=== PATIENT | female | born 1945 | race Caucasian/White ===

== ENCOUNTER 2019-06-29 15:55 | Outpatient (CLI) | payer MEDICARE, SELFPAY ==
--- NOTE | 2019-06-29 16:05 | XR_ITS ---
WS: [id number] RIGHT KNEE: 3 VIEW(S) TECHNIQUE: AP, oblique(s) and lateral. HISTORY: KNEE PAIN RIGHT COMPARISON: 06/23/2018 No acute fracture. Stable sclerotic lesion in the distal RIGHT femur is probably an enchondroma. Cor tical thickening along the medial femoral cortex may be from old healed fracture. Severe narrowing medial compartment. Joint space narrowing with subchondral cystic changes and osteop hytes. Severe patellofemoral joint space arthritis. No soft tissue abnormality. XR/XR knee RT 3V* [id number] IMPRESSION: 1. Severe medial and patellofemoral joint space osteoarthritis. 2. Stable enchondroma and cortical thickening distal femur.
== END 2019-06-29 15:56 | disposition home or self-care (01) ==
LOC: RADOUTREAD 16:00 → WPI 16:04
PROVIDERS: Family Provider Family Medicine; PCP Family Medicine; Referring Provider Family Medicine; Visit Provider Family Medicine
DX: M17.11 Unilateral primary osteoarthritis, right knee (principal); D16.21 Benign neoplasm of long bones of right lower limb; M25.561 Pain in right knee
CPT/HCPCS: 73562

== ENCOUNTER → 2019-07-11 13:23 | Outpatient (BNVA) | payer MEDICARE, SELFPAY | PROVIDERS: Family Provider Family Medicine; PCP Family Medicine; Visit Provider Nurse Practitioner | DX: M54.5 Low back pain (principal); M54.2 Cervicalgia; M25.561 Pain in right knee; M19.90 Unspecified osteoarthritis, unspecified site; Z79.891 Long term (current) use of opiate analgesic | CPT/HCPCS: 99213; 99214 ==

== ENCOUNTER → 2019-07-25 09:11 | Outpatient (BNVA) | payer MEDICARE, SELFPAY | PROVIDERS: Family Provider Family Medicine; PCP Family Medicine; Referring Provider Family Medicine; Visit Provider Specialist | DX: R29.2 Abnormal reflex (principal); R26.81 Unsteadiness on feet; G47.10 Hypersomnia, unspecified; G62.9 Polyneuropathy, unspecified; G60.9 Hereditary and idiopathic neuropathy, unspecified; R61 Generalized hyperhidrosis; G47.19 Other hypersomnia | CPT/HCPCS: 99204; 99214 ==

== ENCOUNTER → 2019-07-26 12:09 | Outpatient (BNVA) | payer MEDICARE, SELFPAY | PROVIDERS: Family Provider Family Medicine; PCP Family Medicine; Visit Provider Specialist | DX: G62.9 Polyneuropathy, unspecified (principal); E11.40 Type 2 diabetes mellitus with diabetic neuropathy, unspecified | CPT/HCPCS: 95913 ==

== ENCOUNTER 2019-08-02 10:35 | Outpatient (RCR) | payer MEDICARE, SELFPAY | END 2019-08-19 23:59 | disposition home or self-care (01) | LOC: SPT 10:35 | PROVIDERS: Family Provider Family Medicine; PCP Family Medicine; Referring Provider Specialist; Visit Provider Specialist | DX: R26.81 Unsteadiness on feet (principal) | CPT/HCPCS: 97110; 97162 ==

== ENCOUNTER 2019-08-20 06:00 | Outpatient (RCR) | payer MEDICARE, SELFPAY | END 2019-09-19 23:59 | disposition home or self-care (01) | LOC: SPT 06:00 | PROVIDERS: Family Provider Family Medicine; PCP Family Medicine; Referring Provider Specialist; Visit Provider Specialist | DX: R26.81 Unsteadiness on feet (principal) | CPT/HCPCS: 97110 ==

== ENCOUNTER → 2019-09-07 09:40 | Outpatient (BNVA) | payer MEDICARE, SELFPAY | PROVIDERS: Family Provider Family Medicine; PCP Family Medicine; Visit Provider Anesthesiology | DX: M19.90 Unspecified osteoarthritis, unspecified site (principal); M25.561 Pain in right knee | CPT/HCPCS: 20610; 77003; J1030; J2001; J3490 ==

== ENCOUNTER → 2019-10-17 15:02 | Outpatient (BNVA) | payer MEDICARE, SELFPAY | PROVIDERS: Family Provider Family Medicine; PCP Family Medicine; Visit Provider Specialist | DX: G56.03 Carpal tunnel syndrome, bilateral upper limbs (principal); G60.9 Hereditary and idiopathic neuropathy, unspecified; E11.40 Type 2 diabetes mellitus with diabetic neuropathy, unspecified | CPT/HCPCS: 99214 ==

== ENCOUNTER → 2020-01-02 13:05 | Outpatient (BNVA) | payer MEDICARE, SELFPAY | PROVIDERS: Family Provider Family Medicine; PCP Family Medicine; Visit Provider Nurse Practitioner | DX: M54.9 Dorsalgia, unspecified (principal); M17.11 Unilateral primary osteoarthritis, right knee; M54.2 Cervicalgia; Z79.899 Other long term (current) drug therapy | CPT/HCPCS: 99214 ==

== ENCOUNTER → 2020-01-25 10:59 | Outpatient (BNVA) | payer MEDICARE, SELFPAY | PROVIDERS: Family Provider Family Medicine; PCP Family Medicine; Visit Provider Anesthesiology | DX: G89.29 Other chronic pain (principal); M17.11 Unilateral primary osteoarthritis, right knee | CPT/HCPCS: 20610; 77002; 77003; J1030; J3490 ==

== ENCOUNTER → 2020-03-19 13:07 | Outpatient (BNVA) | payer MEDICARE, SELFPAY | PROVIDERS: Family Provider Family Medicine; PCP Family Medicine; Visit Provider Nurse Practitioner | DX: G89.29 Other chronic pain (principal); M51.36 Other intervertebral disc degeneration, lumbar region; M25.561 Pain in right knee; M54.2 Cervicalgia; M54.9 Dorsalgia, unspecified; M19.90 Unspecified osteoarthritis, unspecified site; E11.40 Type 2 diabetes mellitus with diabetic neuropathy, unspecified; Z79.891 Long term (current) use of opiate analgesic | CPT/HCPCS: 99214 ==

== ENCOUNTER → 2020-04-18 09:16 | Outpatient (BNVA) | payer MEDICARE, SELFPAY | PROVIDERS: Family Provider Family Medicine; PCP Family Medicine; Visit Provider Anesthesiology | DX: G89.29 Other chronic pain (principal); M25.561 Pain in right knee; M19.90 Unspecified osteoarthritis, unspecified site | CPT/HCPCS: 20610; 77002 ==

== ENCOUNTER → 2020-05-21 13:13 | Outpatient (BNVA) | payer MEDICARE, SELFPAY | PROVIDERS: Family Provider Family Medicine; PCP Family Medicine; Visit Provider Anesthesiology | DX: G89.29 Other chronic pain (principal); M25.561 Pain in right knee; M51.36 Other intervertebral disc degeneration, lumbar region; M19.90 Unspecified osteoarthritis, unspecified site; E11.40 Type 2 diabetes mellitus with diabetic neuropathy, unspecified; M54.2 Cervicalgia; M54.9 Dorsalgia, unspecified; M41.9 Scoliosis, unspecified; Z79.891 Long term (current) use of opiate analgesic | CPT/HCPCS: 99214 ==

== ENCOUNTER → 2020-07-18 10:19 | Outpatient (BNVA) | payer MEDICARE, SELFPAY | PROVIDERS: Family Provider Family Medicine; PCP Family Medicine; Visit Provider Anesthesiology | DX: G89.29 Other chronic pain (principal); M51.36 Other intervertebral disc degeneration, lumbar region; M54.9 Dorsalgia, unspecified; M54.2 Cervicalgia; M19.90 Unspecified osteoarthritis, unspecified site; M25.561 Pain in right knee; E11.40 Type 2 diabetes mellitus with diabetic neuropathy, unspecified; Z79.899 Other long term (current) drug therapy; Z79.891 Long term (current) use of opiate analgesic | CPT/HCPCS: 62323; 99214; J1040; J3490 ==

== ENCOUNTER → 2020-07-24 08:09 | Outpatient (BNVA) | payer MEDICARE, SELFPAY | PROVIDERS: Family Provider Family Medicine; PCP Family Medicine; Visit Provider Specialist | DX: E11.42 Type 2 diabetes mellitus with diabetic polyneuropathy (principal); Z79.84 Long term (current) use of oral hypoglycemic drugs | CPT/HCPCS: 99213 ==

== ENCOUNTER 2020-08-14 13:17 | Outpatient (CLI) | payer MEDICARE, SELFPAY ==
--- NOTE | 2020-08-14 13:25 | CT_ITS ---
WS: [id number] CT CERVICAL SPINE HISTORY: M54.2 - Cervicalgia TECHNIQUE: Contiguous 2.5 mm axial imaging performed through the entire cervical spine. Sagittal and coronal reformats also performed. All CT scans at [facility] use at least one of these do se optimization techniques: automated exposure control; mA and/or kV adjustment per patient size (inc ludes targeted exams where dose is matched to clinical indication); or iterative reconstruction. DLP: 2044.89 mGycm COMPARISON: None available. Reversal of normal cervical lordosis centered at C5-6. Severe disc space narrowing at C4-5, C5-6 and C6-7. C2 anterolisthesis by 3.7 mm and C3 anterolisthesis by 3.4 mm. Hypertrophic soft tissue and osteophytes surrounding the odontoid process with severe narrowing of th e predental space. C2-C3: Severe RIGHT foraminal stenosis due to facet arthritis and osteophytes. C3-C4: Marked bilateral facet joint arthritis. Bilateral severe foraminal narrowing, RIGHT greater th an LEFT and a small central disc protrusion. C4-C5: Diffuse osteophytic ridging with encroachment upon the ventral thecal sac. Moderate to severe bilateral foraminal stenosis. C5-C6: Diffuse osteophytic ridging resulting in moderate central with severe bilateral foraminal sten osis. C6-C7: Diffuse osteophytic ridging and facet arthritis. Severe central and bilateral foraminal stenos is. C7-T1: Mild facet arthritis without significant stenosis. T1-2: Mild bilateral facet arthritis with mild foraminal stenosis. Atherosclerotic calcifications in the aortic arch. CT/CT cervical spin wo con* [id number] IMPRESSION: 1. Severe degenerative spondylitic changes throughout the cervical spine. 2. C2 anterolisthesis by 3.7 mm and C3 anterolisthesis by 3.4 mm. 3. Severe disc space narrowing and desiccation at C4-5, C5-6 and C6-7. 4. Multilevel areas of severe and moderate to severe central and foraminal karin noses as above.
== END 2020-08-14 13:18 | disposition home or self-care (01) ==
PROVIDERS: PCP Family Medicine; Visit Provider Anesthesiology
DX: M54.2 Cervicalgia (principal); G89.29 Other chronic pain; M48.02 Spinal stenosis, cervical region
CPT/HCPCS: 72125

== ENCOUNTER → 2020-09-19 13:26 | Outpatient (BNVA) | payer MEDICARE, SELFPAY | PROVIDERS: PCP Family Medicine; Visit Provider Nurse Practitioner | DX: G89.29 Other chronic pain (principal); M25.561 Pain in right knee; M54.2 Cervicalgia; M51.36 Other intervertebral disc degeneration, lumbar region; M19.90 Unspecified osteoarthritis, unspecified site; M41.9 Scoliosis, unspecified; E11.40 Type 2 diabetes mellitus with diabetic neuropathy, unspecified; G56.03 Carpal tunnel syndrome, bilateral upper limbs; Z79.891 Long term (current) use of opiate analgesic | CPT/HCPCS: 99213 ==

== ENCOUNTER → 2020-11-21 11:07 | Outpatient (BNVA) | payer MEDICARE, SELFPAY | PROVIDERS: PCP Family Medicine; Visit Provider Anesthesiology | DX: G89.29 Other chronic pain (principal); M51.36 Other intervertebral disc degeneration, lumbar region; M54.2 Cervicalgia; M54.9 Dorsalgia, unspecified; M19.90 Unspecified osteoarthritis, unspecified site; M25.561 Pain in right knee; Z79.891 Long term (current) use of opiate analgesic; Z79.899 Other long term (current) drug therapy | CPT/HCPCS: 99214 ==

== ENCOUNTER → 2020-12-12 10:08 | Outpatient (BNVA) | payer MEDICARE, SELFPAY | PROVIDERS: PCP Family Medicine; Visit Provider Anesthesiology | DX: G89.29 Other chronic pain (principal); M54.2 Cervicalgia; M54.9 Dorsalgia, unspecified; Z79.891 Long term (current) use of opiate analgesic | CPT/HCPCS: 62321; J1040 ==

== ENCOUNTER → 2021-01-21 13:07 | Outpatient (BNVA) | payer MEDICARE, SELFPAY | PROVIDERS: PCP Family Medicine; Visit Provider Anesthesiology | DX: G89.29 Other chronic pain (principal); M51.36 Other intervertebral disc degeneration, lumbar region; M54.2 Cervicalgia; M25.561 Pain in right knee; M19.90 Unspecified osteoarthritis, unspecified site; E11.40 Type 2 diabetes mellitus with diabetic neuropathy, unspecified; Z79.891 Long term (current) use of opiate analgesic | CPT/HCPCS: 99214 ==

== ENCOUNTER → 2021-03-21 09:57 | Outpatient (BNVA) | payer MEDICARE, SELFPAY | PROVIDERS: PCP Family Medicine; Visit Provider Anesthesiology | DX: G89.29 Other chronic pain (principal); M51.36 Other intervertebral disc degeneration, lumbar region; M54.2 Cervicalgia; M25.561 Pain in right knee; G60.9 Hereditary and idiopathic neuropathy, unspecified; M19.90 Unspecified osteoarthritis, unspecified site; Z79.899 Other long term (current) drug therapy; Z79.891 Long term (current) use of opiate analgesic | CPT/HCPCS: 99214 ==

== ENCOUNTER → 2021-03-25 10:09 | Outpatient (BNVA) | payer MEDICARE, SELFPAY | PROVIDERS: PCP Family Medicine; Visit Provider Internal Medicine | DX: L40.9 Psoriasis, unspecified (principal); Z79.899 Other long term (current) drug therapy; Z11.59 Encounter for screening for other viral diseases; Z11.1 Encounter for screening for respiratory tuberculosis; M54.2 Cervicalgia; M54.9 Dorsalgia, unspecified; G89.29 Other chronic pain | CPT/HCPCS: 99203; 99204 ==

== ENCOUNTER 2021-03-25 15:48 | Outpatient (CLI) | payer MEDICARE, SELFPAY ==
--- NOTE | 2021-03-25 15:53 | XR_ITS ---
WS: [id number] Left foot, 2 views, 03/25/2021 Clinical Data: M25.50 - Pain in unspecified joint Comparison: None. Findings: No new fractures or dislocations are seen. There is an old fracture of mid shaft of the left third me tacarpal. No bone destruction or erosion is noted. The joint spaces and soft tissues are normal. There is osteoarthritic change at the bases of the metacarpals at the articulation with the cuneiform s and cuboid. There is osteoarthritis of the left first MTP joint. There is a plantar spur. The foot is flat. No periarticular demineralization or calcifications are seen. XR/XR foot LT 2V [id number] Impression: Osteoarthritis at the bases of the left foot metatarsals and left first MTP stacy nt.
--- NOTE | 2021-03-25 15:53 | XR_ITS ---
WS: [id number] Left hand, 2 views, 03/25/2021 Clinical Data: L40.9 - Psoriasis, unspecified Comparison: None. Findings: No fractures or dislocations are seen. The soft tissues are unremarkable. There is narrowing of the s econd through fifth finger DIP joints in the left MIP joint. There is osteoarthritic change at the ba se of the left first metacarpal. There is calcification of the triradiate cartilage. No periarticular demineralization is seen. XR/XR hand LT 2V [id number] Impression: 1. Narrowing of the left first finger IP joint and of the second through fifth finger DIP joints. 2. Osteoarthritic change at the base of the left first metacarpal.
--- NOTE | 2021-03-25 15:53 | XR_ITS ---
WS: [id number] Right foot, 2 views, 03/25/2021 Clinical Data: M25.50 - Pain in unspecified joint Comparison: None. Findings: No fractures or dislocations are seen. No bone destruction or erosion is noted. There is a bunion at the head of the right first metatarsal. There is a plantar spur. No periarticular demineralization or calcifications are seen. XR/XR foot RT 2V [id number] Impression: Bunion of the head of the right first metatarsal.
--- NOTE | 2021-03-25 15:53 | XR_ITS ---
WS: [id number] Sacroiliac joints, 3 views, 03/25/2021 Clinical Data: L40.9 - Psoriasis, unspecified Comparison: None. Findings: The SI joints are normal in width. No erosion, sclerosis or destruction is seen. There are no fractur es or dislocations. The adjacent visualized pelvis and hips are unremarkable. There is a stimulator wire which appears to end on the left side of the sacrum. There is degenerative change and disc narrowing of the lower lum bar vertebra. XR/XR sacroiliac jts m 3V [id number] Impression: Negative SI joints.
--- NOTE | 2021-03-25 15:53 | XR_ITS ---
WS: [id number] Right hand, 2 views, 03/25/2021 Clinical Data: L40.9 - Psoriasis, unspecified Comparison: None. Findings: No fractures or dislocations are seen. The soft tissues are unremarkable. There is narrow ing of the DIP joints of the second through fifth fingers and of the right first finger IP joint. Is osteoarthritis at the base of the right first metacarpal articulation with the trapezium. No periarti cular demineralization or calcifications are seen. XR/XR hand RT 2V [id number] Impression: 1. Narrowing of the right first IP joint and the DIP joints of the second throu gh fifth fingers. 2. Osteoarthritic change at the base of the right first metacarpal.
== END 2021-03-25 15:49 | disposition home or self-care (01) ==
PROVIDERS: PCP Family Medicine; Visit Provider Internal Medicine
DX: L40.9 Psoriasis, unspecified (principal); M25.50 Pain in unspecified joint; Z11.59 Encounter for screening for other viral diseases; Z11.1 Encounter for screening for respiratory tuberculosis; Z79.899 Other long term (current) drug therapy; M54.2 Cervicalgia; M54.9 Dorsalgia, unspecified; G89.29 Other chronic pain
CPT/HCPCS: 72202; 73120; 73620; 80053; 85025; 86480; 86704; 86803; 87340; 99203; 99204

== ENCOUNTER → 2021-04-17 10:35 | Outpatient (BNVA) | payer MEDICARE, SELFPAY | PROVIDERS: PCP Family Medicine; Visit Provider Internal Medicine | DX: L40.9 Psoriasis, unspecified (principal); M51.36 Other intervertebral disc degeneration, lumbar region | CPT/HCPCS: 99213 ==

== ENCOUNTER 2021-04-17 13:34 | Outpatient (CLI) | payer MEDICARE, SELFPAY ==
--- NOTE | 2021-04-17 13:50 | XR_ITS ---
WS: [id number] Exam: XR knee LT 3V* [id number] Date/Time of Exam: 04/17/2021 1:53 PM Reason For Exam: L KNEE PAIN Comparison 02/15/2019. Moderate degenerative thinning of the medial joint space. No acute fracture. There is effusion in the suprapatellar bursa. Spurring of the posterior patella. Prominent bone spurs project from the audiovisual equipment operator ior central tibial plateau. XR/XR knee LT 3V* [id number] IMPRESSION: 1. No acute fracture. 2. Moderate degenerative changes and joint effusion. Large hypertrophic spurs p roject from the central posterior tibial plateau.
== END 2021-04-17 13:35 | disposition home or self-care (01) ==
PROVIDERS: PCP Family Medicine; Visit Provider Family Medicine
DX: M25.462 Effusion, left knee (principal)
CPT/HCPCS: 73562

== ENCOUNTER → 2021-05-23 10:25 | Outpatient (BNVA) | payer MEDICARE, SELFPAY | PROVIDERS: PCP Family Medicine; Visit Provider Anesthesiology | DX: G89.29 Other chronic pain (principal); M51.36 Other intervertebral disc degeneration, lumbar region; M54.2 Cervicalgia; M25.561 Pain in right knee; M19.90 Unspecified osteoarthritis, unspecified site; Z79.891 Long term (current) use of opiate analgesic; Z79.899 Other long term (current) drug therapy | CPT/HCPCS: 99214 ==

== ENCOUNTER 2021-06-21 11:55 | Emergency (ER) | payer MEDICARE, SELFPAY ==
[2021-06-21 12:25] VITALS: BP 200/104; PULSE 84; RESP 16; TEMP 37.2; O2SAT 95
--- NOTE | 2021-06-21 13:15 | ED_ITS ---
HPI - Skin/Abscess/Foreign Bdy General: Chief complaint: Skin/Abscess/Foreign Body Stated complaint: BACK MUSCLE PAIN X3 DAYS/RASH AT SITE,ELEV TEMP Time Seen by Provider: 06/21/21 13:15 History of Present Illness: HPI narrative: 75 yo COUNTS INCLUDE 234 BEDS AT THE [facility] ED PFSH: Medical History Acquired scoliosis Cervical spine pain Chronic neck and back pain Chronic osteoarthritis Chronic pain of right knee DDD (degenerative disc disease), lumbar Spinal stenosis and radicular pain Diabetes Encounter for long-term opiate analgesic use Long-term use of high-risk medication Obesity Painful diabetic neuropathy Psoriasis Surgical History History of placement of ear tubes 9 years ago -left side S/P cholecystectomy S/P hysterectomy Family History Family/Other CAD (coronary artery disease) Hypertension Mother Hyperlipidemia Hypertension Grandmother Cancer Grandfather CAD (coronary artery disease) Denies family history of Diabetes Lupus Anesthesia complication Bleeding disorder Stroke Social History Second hand smoke exposure: No Alcohol intake: current Alcohol intake frequency: few times a month Alcohol type: hard liquor History of recent travel: No Course Vital Signs: Vital signs: Vital Signs Temperature 98.9 F 06/21/21 12:25 Pulse Rate 84 06/21/21 12:25 Respiratory Rate 16 06/21/21 12:25 Blood Pressure 200/104 06/21/21 12:25 Pulse Oximetry 95 06/21/21 12:25 Discharge Plan Discharge Prescriptions: No Action alprazolam 0.25 mg tablet 0.25 mg PO BID PRNRF: 0 albuterol sulfate 90 mcg/actuation HFA aerosol inhaler 2 puff INHALATION Q6H PRNRF: 0 bupropion HCl 150 mg tablet extended release 24 hr 150 mg PO QAM RF: 0 folic acid 1 mg tablet 1 mg PO QDAY RF: 0 gabapentin 300 mg capsule 900 mg PO TID RF: 0 metformin 500 mg tablet 500 mg PO BID RF: 0 esomeprazole magnesium [Nexium] 40 mg capsule,delayed release(DR/EC) 40 mg PO QDAY RF: 0 losartan 100 mg tablet 100 mg PO QDAY RF: 0 amlodipine [Norvasc] 10 mg tablet 10 mg PO QDAY RF: 0 melatonin 3 mg tablet 3 - 6 mg PO ONCE RF: 0 naproxen sodium 220 mg tablet 220 mg PO BID PRNRF: 0 simethicone PO DAILY RF: 0 fluconazole PO .WEEKLY RF: 0 lidocaine 5 % adhesive patch,medicated 1 patch TOPICAL QDAY RF: 0 fluticasone propion-salmeterol [Advair Diskus] 250-50 mcg/dose blister with device 1 inh INHALATION BID RF: 0 cyanocobalamin (vitamin B-12) 4 each PO .WEEKLY PRNRF: 0 cranberry fruit concentrate PO PRNRF: 0 diclofenac sodium [Voltaren] 1 % gel 4 gm TOPICAL QID Qty: 400 RF: 3 cholecalciferol (vitamin D3) 25 mcg (1,000 unit) capsule 25 mcg PO DAILY RF: 0 prednisone 10 mg tablet 10 mg PO DAILY RF: 0 levothyroxine 25 mcg capsule 25 mcg PO ONCE RF: 0 zolpidem 10 mg tablet PO RF: 0 hydrocodone-acetaminophen 10-325 mg tablet 1 tab PO BID 30 Days Qty: 60 RF: 0 hydrocodone-acetaminophen 10-325 mg tablet 1 tab PO BID MDD 3 tablets PRN (Reason: pain) 30 Days Qty: 60 RF: 0 (DME) Diabetic Shoes with Custom Accommedative Inserts with Modifications of Left Sub Navicular for Offloading See Rx Instructions .Route .MEDSUPPLY Qty: 1 RF: 0 (DME) Diabetic Shoes See Rx Instructions .ROUTE .MEDSUPPLY Qty: 1 RF: 0 albuterol sulfate [ProAir HFA] 90 mcg/actuation HFA aerosol inhaler 2 inh INHALATION Q8H PRNRF: 0 citalopram [Celexa] PO RF: 0 duloxetine 30 mg capsule,delayed release(DR/EC) 30 mg PO BID RF: 0 morphine 60 mg tablet extended release 60 mg PO Q8H 30 Days Qty: 90 RF: 0 morphine 60 mg tablet extended release 60 mg PO Q8H 30 Days Qty: 90 RF: 0 Otezla Starter 10 mg (4)-20 mg (4)-30 mg (47) tablets,dose pack See Rx Instructions PO PER PKG DIR Qty: 55 RF: 0 Coding Level of Care Code ED Corporate Controller for Dieudonne Sandoval
--- NOTE | 2021-06-22 07:18 | ED_ITS ---
Documented by User: RADHA Brenner 06/22/21 07:23 HPI - Skin/Abscess/Foreign Bdy General: Chief complaint: Skin/Abscess/Foreign Body Stated complaint: BACK MUSCLE PAIN X3 DAYS/RASH AT SITE,ELEV TEMP Time Seen by Provider: 06/21/21 13:15 Source: patient Mode of arrival: ambulatory Limitations: no limitations History of Present Illness: HPI narrative: Patient is a nice 75-year-old female presents to ED today with complaints of left sided back pain and a rash that she first began noticing approximately 48 to 72 hours ago. She states she developed a few skin lesions that were slightly pruritic but did notice quite a bit of burning and pain prior to these lesions erupting. She thinks this could be shingles however she is vaccinated for shingles. Patient denies any injury or trauma. She takes a large amount of chronic pain medications for various pain syndromes . MD complaint: rash and other (back pain) Onset (ago): day(s) Tetanus up to date: yes Location: back Quality: burning Pain Consistency: constant Relieving factors: none Exacerbating factors: none Associated symptoms: Reports chills and fever(s) (subjective low grade) Treatments prior to arrival: none Review of Systems Const: Reports: fever(s) (subjective low grade) and chills Eyes: Denies: change in vision, blurry vision or photophobia ENMT: Denies: throat pain, odynophagia, nasal discharge or nasal congestion Card: Denies: chest pain Resp: Denies: dyspnea GI: Denies: abdominal pain : Denies: flank pain, dysuria or hematuria Musc: Reports: back pain; Denies: neck pain, extremity pain or joint pain Skin/Breast: Reports: rash Neuro: Denies: headache(s), numbness in extremities, weakness in extremities, sensory changes, difficulty walking or dizziness PFSH ED PFSH: Medical History Acquired scoliosis Cervical spine pain Chronic neck and back pain Chronic osteoarthritis Chronic pain of right knee DDD (degenerative disc disease), lumbar Spinal stenosis and radicular pain Diabetes Encounter for long-term opiate analgesic use Long-term use of high-risk medication Obesity Painful diabetic neuropathy Psoriasis Surgical History History of placement of ear tubes 9 years ago -left side S/P cholecystectomy S/P hysterectomy Family History Family/Other CAD (coronary artery disease) Hypertension Mother Hyperlipidemia Hypertension Grandmother Cancer Grandfather CAD (coronary artery disease) Denies family history of Diabetes Lupus Anesthesia complication Bleeding disorder Stroke Social History Second hand smoke exposure: No Alcohol intake: current Alcohol intake frequency: few times a month Alcohol type: hard liquor History of recent travel: No Physical Exam Const: COMMON NORMALS: no acute distress, patient oriented x3, no limitations and alert NUTRITIONAL APPEARANCE: overweight ORIENTATION/CONSCIOUSNESS: Yes awake, Yes oriented to person, Yes oriented to place and Yes oriented to time HENMT: COMMON NORMALS: normocephalic and atraumatic HEAD & SCALP: normocephalic and atraumatic FACE & SINUS: normal facial exam Resp: COMMON NORMALS: normal respiratory effort and clear to auscultation bilaterally AUSCULTATION: clear to auscultation bilaterally Cardio: COMMON NORMALS: regular rate and regular rhythm RATE: regular rate RHYTHM: regular rhythm Back/Pelvis: THORACIC SPINE/UPPER BACK: Yes normal to inspection, Yes thoracic ROM normal and No thoracic spinal tenderness LUMBAR SPINE/LOWER BACK: Yes normal to inspection, Yes lumbar ROM normal and No lumbar spinal tenderness OTHER: pt has a vesicular clustering rash to the L side of her back and radiating around to her lateral abdomen/lateral L breast following dermatomal pattern consistent with herpes zoster Extremity: COMMON NORMALS: normal to inspection and full ROM GENERAL: Yes normal exam except as noted Neuro: NA COMA SCALE: document GCS findings Na coma scale eye opening: Spontaneous [place] coma scale verbal response: Orientated [place] coma scale motor response: Obey commands [place] coma scale total score: 15 COMMON NORMALS: patient oriented x3, moves all extremities, no focal motor deficits, no sensory deficits noted and gait normal SENSORIUM/ORIENTATION: Yes alert, Yes oriented to person, Yes oriented to place and Yes oriented to time Course Vital Signs: Vital signs: Vital Signs Temperature 98.9 F 06/21/21 12:25 Pulse Rate 84 06/21/21 12:25 Respiratory Rate 16 06/21/21 12:25 Blood Pressure 200/104 06/21/21 12:25 Pulse Oximetry 95 06/21/21 12:25 MDM - Skin/Abscess/Foreign Bdy MDM Narrative: Medical decision making narrative: Will place on antivirals and steroids. She already takes quite a bit of pain medications that she can continue. Recommend follow up with PCP this week for re-evaluation. Return to ED precautions verbally given to patient. Discharge Plan Discharge Patient Disposition: Home Clinical Impression: Shingles Qualifiers: Herpes zoster complications: without complications Qualified Code(s): B02.9 - Zoster without complications Condition: Stable Prescriptions: New Valtrex 1 gram tablet 1,000 mg PO TID 7 Days Qty: 21 RF: 0 prednisone 10 mg tablet 10 mg PO DAILY 10 Days Qty: 41 RF: 0 No Action alprazolam 0.25 mg tablet 0.25 mg PO BID PRNRF: 0 albuterol sulfate 90 mcg/actuation HFA aerosol inhaler 2 puff INHALATION Q6H PRNRF: 0 bupropion HCl 150 mg tablet extended release 24 hr 150 mg PO QAM RF: 0 folic acid 1 mg tablet 1 mg PO QDAY RF: 0 gabapentin 300 mg capsule 900 mg PO TID RF: 0 metformin 500 mg tablet 500 mg PO BID RF: 0 esomeprazole magnesium [Nexium] 40 mg capsule,delayed release(DR/EC) 40 mg PO QDAY RF: 0 losartan 100 mg tablet 100 mg PO QDAY RF: 0 amlodipine [Norvasc] 10 mg tablet 10 mg PO QDAY RF: 0 melatonin 3 mg tablet 3 - 6 mg PO ONCE RF: 0 naproxen sodium 220 mg tablet 220 mg PO BID PRNRF: 0 simethicone PO DAILY RF: 0 fluconazole PO .WEEKLY RF: 0 lidocaine 5 % adhesive patch,medicated 1 patch TOPICAL QDAY RF: 0 fluticasone propion-salmeterol [Advair Diskus] 250-50 mcg/dose blister with device 1 inh INHALATION BID RF: 0 cyanocobalamin (vitamin B-12) 4 each PO .WEEKLY PRNRF: 0 cranberry fruit concentrate PO PRNRF: 0 diclofenac sodium [Voltaren] 1 % gel 4 gm TOPICAL QID Qty: 400 RF: 3 cholecalciferol (vitamin D3) 25 mcg (1,000 unit) capsule 25 mcg PO DAILY RF: 0 prednisone 10 mg tablet 10 mg PO DAILY RF: 0 levothyroxine 25 mcg capsule 25 mcg PO ONCE RF: 0 zolpidem 10 mg tablet PO RF: 0 hydrocodone-acetaminophen 10-325 mg tablet 1 tab PO BID 30 Days Qty: 60 RF: 0 hydrocodone-acetaminophen 10-325 mg tablet 1 tab PO BID MDD 3 tablets PRN (Reason: pain) 30 Days Qty: 60 RF: 0 (DME) Diabetic Shoes with Custom Accommedative Inserts with Modifications of Left Sub Navicular for Offloading See Rx Instructions .Route .MEDSUPPLY Qty: 1 RF: 0 (DME) Diabetic Shoes See Rx Instructions .ROUTE .MEDSUPPLY Qty: 1 RF: 0 albuterol sulfate [ProAir HFA] 90 mcg/actuation HFA aerosol inhaler 2 inh INHALATION Q8H PRNRF: 0 citalopram [Celexa] PO RF: 0 duloxetine 30 mg capsule,delayed release(DR/EC) 30 mg PO BID RF: 0 morphine 60 mg tablet extended release 60 mg PO Q8H 30 Days Qty: 90 RF: 0 morphine 60 mg tablet extended release 60 mg PO Q8H 30 Days Qty: 90 RF: 0 Otezla Starter 10 mg (4)-20 mg (4)-30 mg (47) tablets,dose pack See Rx Instructions PO PER PKG DIR Qty: 55 RF: 0 Discharge Orders: Discharge ED (Routine); Ordered 06/21/21 Ordered By: Simona Reyez Referrals: Dwayne Echevarria DO [Primary Care Provider] - Patient Instructions: Ana (ED) Coding Level of Care Code ED Rubber Chemist for Chg Fwd Exam Detailed Documented by User: Santana Jimenez DO 06/23/21 05:52 HPI - Skin/Abscess/Foreign Bdy General: Chief complaint: Skin/Abscess/Foreign Body Stated complaint: BACK MUSCLE PAIN X3 DAYS/RASH AT SITE,ELEV TEMP Time Seen by Provider: 06/21/21 13:15 PFSH ED PFSH: Medical History Acquired scoliosis Cervical spine pain Chronic neck and back pain Chronic osteoarthritis Chronic pain of right knee DDD (degenerative disc disease), lumbar Spinal stenosis and radicular pain Diabetes Encounter for long-term opiate analgesic use Long-term use of high-risk medication Obesity Painful diabetic neuropathy Psoriasis Surgical History History of placement of ear tubes 9 years ago -left side S/P cholecystectomy S/P hysterectomy Family History Family/Other CAD (coronary artery disease) Hypertension Mother Hyperlipidemia Hypertension Grandmother Cancer Grandfather CAD (coronary artery disease) Denies family history of Diabetes Lupus Anesthesia complication Bleeding disorder Stroke Social History Second hand smoke exposure: No Alcohol intake: current Alcohol intake frequency: few times a month Alcohol type: hard liquor History of recent travel: No Course Vital Signs: Vital signs: Vital Signs Temperature 98.9 F 06/21/21 12:25 Pulse Rate 84 06/21/21 12:25 Respiratory Rate 16 06/21/21 12:25 Blood Pressure 200/104 06/21/21 12:25 Pulse Oximetry 95 06/21/21 12:25 MDM - Skin/Abscess/Foreign Bdy MDM Narrative: Medical decision making narrative: Chart reviewed and patient discussed with midlevel. Agree with assessment and plan. Discharge Plan Discharge Patient Disposition: Home Clinical Impression: Shingles Qualifiers: Herpes zoster complications: without complications Qualified Code(s): B02.9 - Z jordy without complications Condition: Stable Prescriptions: New Valtrex 1 gram tablet 1,000 mg PO TID 7 Days Qty: 21 RF: 0 prednisone 10 mg tablet 10 mg PO DAILY 10 Days Qty: 41 RF: 0 No Action alprazolam 0.25 mg tablet 0.25 mg PO BID PRNRF: 0 albuterol sulfate 90 mcg/actuation HFA aerosol inhaler 2 puff INHALATION Q6H PRNRF: 0 bupropion HCl 150 mg tablet extended release 24 hr 150 mg PO QAM RF: 0 folic acid 1 mg tablet 1 mg PO QDAY RF: 0 gabapentin 300 mg capsule 900 mg PO TID RF: 0 metformin 500 mg tablet 500 mg PO BID RF: 0 esomeprazole magnesium [Nexium] 40 mg capsule,delayed release(DR/EC) 40 mg PO QDAY RF: 0 losartan 100 mg tablet 100 mg PO QDAY RF: 0 amlodipine [Norvasc] 10 mg tablet 10 mg PO QDAY RF: 0 melatonin 3 mg tablet 3 - 6 mg PO ONCE RF: 0 naproxen sodium 220 mg tablet 220 mg PO BID PRNRF: 0 simethicone PO DAILY RF: 0 fluconazole PO .WEEKLY RF: 0 lidocaine 5 % adhesive patch,medicated 1 patch TOPICAL QDAY RF: 0 fluticasone propion-salmeterol [Advair Diskus] 250-50 mcg/dose blister with device 1 inh INHALATION BID RF: 0 cyanocobalamin (vitamin B-12) 4 each PO .WEEKLY PRNRF: 0 cranberry fruit concentrate PO PRNRF: 0 diclofenac sodium [Voltaren] 1 % gel 4 gm TOPICAL QID Qty: 400 RF: 3 cholecalciferol (vitamin D3) 25 mcg (1,000 unit) capsule 25 mcg PO DAILY RF: 0 prednisone 10 mg tablet 10 mg PO DAILY RF: 0 levothyroxine 25 mcg capsule 25 mcg PO ONCE RF: 0 zolpidem 10 mg tablet PO RF: 0 hydrocodone-acetaminophen 10-325 mg tablet 1 tab PO BID 30 Days Qty: 60 RF: 0 hydrocodone-acetaminophen 10-325 mg tablet 1 tab PO BID MDD 3 tablets PRN (Reason: pain) 30 Days Qty: 60 RF: 0 (DME) Diabetic Shoes with Custom Accommedative Inserts with Modifications of Left Sub Navicular for Offloading See Rx Instructions .Route .MEDSUPPLY Qty: 1 RF: 0 (DME) Diabetic Shoes See Rx Instructions .ROUTE .MEDSUPPLY Qty: 1 RF: 0 albuterol sulfate [ProAir HFA] 90 mcg/actuation HFA aerosol inhaler 2 inh INHALATION Q8H PRNRF: 0 citalopram [Celexa] PO RF: 0 duloxetine 30 mg capsule,delayed release(DR/EC) 30 mg PO BID RF: 0 morphine 60 mg tablet extended release 60 mg PO Q8H 30 Days Qty: 90 RF: 0 morphine 60 mg tablet extended release 60 mg PO Q8H 30 Days Qty: 90 RF: 0 Otezla Starter 10 mg (4)-20 mg (4)-30 mg (47) tablets,dose pack See Rx Instructions PO PER PKG DIR Qty: 55 RF: 0 Discharge Orders: Discharge ED (Routine); Ordered 06/21/21 Ordered By: Simona Reyez Referrals: Dwayne Echevarria, [Primary Care Provider] - Patient Instructions: Ana (ED) Coding Level of Care Code ED Rubber Chemist for Chg Fwd Exam Detailed
== END 2021-06-21 13:58 | disposition home or self-care (01) ==
PROVIDERS: Emergency Provider Physician Assistant; PCP Family Medicine
DX: B02.9 Zoster without complications (principal); E11.9 Type 2 diabetes mellitus without complications; Z79.84 Long term (current) use of oral hypoglycemic drugs; Z79.891 Long term (current) use of opiate analgesic
CPT/HCPCS: 99281

== ENCOUNTER 2021-07-21 14:00 | Outpatient (CLI) | payer MEDICARE, SELFPAY ==
[2021-07-21 14:46] LABS: Basophils % 0.8 %; Eosinophils # 0.2 10^3/uL (0.0-0.8); Hematocrit 42.8 % (37.0-47.0); Hemoglobin 13.1 g/dL (11.5-15.3); Lymphocytes # 2.1 10^3/uL (0.8-4.8); Lymphocytes % 39.5 %; Mean Corpuscular HGB Conc 30.6 g/dL (30.0-36.0); Mean Corpuscular Hemoglobin 26.6 pg (28.0-34.0); Mean Corpuscular Volume 86.8 fl (81-99); Mean Platelet Volume 11.6 fL (7.4-10.4); Monocytes # 0.4 10^3/uL (0.2-0.9); Monocytes % 8.4 %; Neutrophils # 2.45 10^3/uL (1.8-7.7); Neutrophils % 46.7 %; Nucleated Red Blood Cells % 0 %; Platelet Count 217 10^3/cmm (130-400); Red Blood Count 4.93 10^6/uL (4.1-5.3); Red Cell Distribution Width 18.5 % (12.1-15.1); White Blood Count 5.2 10^3/uL (4.0-10.0)
[2021-07-21 15:08] LABS: Alanine Aminotransferase 10 U/L (0-33); Albumin Level 3.6 g/dL (3.5-5.2); Alkaline Phosphatase 176 IU/L (35-105); Aspartate Amino Transferase 13 U/L (0-32); Blood Urea Nitrogen 8 mg/dL (8-23); C Reactive Protein 2.7 mg/L (0.0-4.9); Calcium 8.7 mg/dL (8.5-10.5); Carbon Dioxide 24 mmol/L (22-29); Chloride 103 mmol/L (98-107); Globulin 2.4 g/dL (1.3-4.6); Glucose 117 mg/dL (65-115); Osmolality Calculated 287 mOsm/kg (285-295); Sodium 139 mmol/L (136-145); Total Bilirubin 0.2 mg/dL (0.15-1.2)
[2021-07-21 15:14] LABS: Erythrocyte Sedimentation Rate 15 mm/hr (0-15)
== END 2021-07-21 14:01 | disposition home or self-care (01) ==
LOC: LAB 14:17
PROVIDERS: PCP Family Medicine; Visit Provider Internal Medicine
DX: L40.9 Psoriasis, unspecified (principal); Z79.899 Other long term (current) drug therapy
CPT/HCPCS: 36415; 80053; 85025; 85651; 86140

== ENCOUNTER → 2021-07-22 12:38 | Outpatient (BNVA) | payer MEDICARE, SELFPAY | PROVIDERS: PCP Family Medicine; Visit Provider Internal Medicine | DX: L40.9 Psoriasis, unspecified (principal); M25.50 Pain in unspecified joint; M51.36 Other intervertebral disc degeneration, lumbar region; Z86.19 Personal history of other infectious and parasitic diseases | CPT/HCPCS: 99214 ==

== ENCOUNTER → 2021-07-30 08:34 | Outpatient (BNVA) | payer MEDICARE, SELFPAY | PROVIDERS: PCP Family Medicine; Visit Provider Anesthesiology | DX: G89.29 Other chronic pain (principal); M51.36 Other intervertebral disc degeneration, lumbar region; M54.2 Cervicalgia; M25.561 Pain in right knee; M19.90 Unspecified osteoarthritis, unspecified site; E11.40 Type 2 diabetes mellitus with diabetic neuropathy, unspecified; Z79.891 Long term (current) use of opiate analgesic | CPT/HCPCS: 99214 ==

== ENCOUNTER 2021-10-31 08:51 | Emergency (ER) | payer MEDICARE, SELFPAY ==
--- NOTE | 2021-10-31 09:15 | XR_ITS ---
WS: [id number] LEFT WRIST: 3 VIEW(S) TECHNIQUE: PA, oblique and lateral. HISTORY: pain/ trauma COMPARISON: None available. Acute nondisplaced fracture through the radial styloid extending intra-articular. Nondisplaced fractu re through the ulnar styloid. Radiocarpal joint space narrowing. Severe osteoarthritic changes at the first STT and CMC joints. Mild soft tissue edema surrounding the wrist. XR/XR wrist LT min 3V* [id number] IMPRESSION: 1. Nondisplaced radial styloid intra-articular fracture. 2. Nondisplaced fracture base of the ulnar styloid. 3. Advanced osteoarthritis at the STT and first CMC joint.
--- NOTE | 2021-10-31 09:17 | W.ED.EXTPRO ---
HPI - Extremity Problem General: Chief complaint: Extremity Injury, Upper Stated complaint: Left wrist injury Time Seen by Provider: 10/31/21 09:12 Source: patient Mode of arrival: ambulatory Limitations: no limitations History of Present Illness: 75-year-old female presents emergency room after falling at home this morning. She has peripheral neuropathy relates that she falls fairly often when she got up out of bed and started walking to the bedroom and fell landed on an outstretched left hand. She did bump her head but she states she has not had any nausea or vomiting she not on any anticoagulants and no loss consciousness she took her medications and drank coffee after she fell without any problems. She did experience persistent pain in the left wrist and it began to swell she came in to be seen. MD Complaint: joint swelling and joint pain Onset (ago): minute(s) Pain Consistency: constant Location: left and upper extremity (Wrist) Quality: aching Relieving factors: immobilization Exacerbating factors: range of motion and palpation Associated symptoms: Deny arthralgias, chest pain, fever(s), myalgias, rash or short of breath Review of Systems Const: Denies: fever(s) or chills ENMT: Denies: throat pain, ear or mastoid pain, nasal discharge or nasal congestion Card: Denies: chest pain, palpitations, irregular heart rhythm, edema or swelling of feet/ankles Resp: Denies: dyspnea, productive cough or non-productive cough GI: Denies: abdominal pain, nausea, vomiting, hematemesis, coffee ground emesis, diarrhea, constipation, bloating, hematochezia or melena : Denies: flank pain, difficulty voiding, dysuria, urinary frequency or urinary urgency Musc: Reports: joint pain (Left wrist) Skin/Breast: Denies: rash PFSH ED PFSH: Medical History Acquired scoliosis Cervical spine pain Chronic neck and back pain Chronic osteoarthritis Chronic pain of right knee DDD (degenerative disc disease), lumbar Spinal stenosis and radicular pain Diabetes Encounter for long-term opiate analgesic use Long-term use of high-risk medication Obesity Painful diabetic neuropathy Psoriasis Surgical History History of placement of ear tubes 9 years ago -left side S/P cholecystectomy S/P hysterectomy Family History Family/Other CAD (coronary artery disease) Hypertension Mother Hyperlipidemia Hypertension Grandmother Cancer Grandfather CAD (coronary artery disease) Denies family history of Diabetes Lupus Anesthesia complication Bleeding disorder Stroke Social History Smoking and tobacco status: never smoked Second hand smoke exposure: No Alcohol intake: never History of recent travel: No Physical Exam Const: COMMON NORMALS: no acute distress GENERAL APPEARANCE: cooperative and comfortable ORIENTATION/CONSCIOUSNESS: Yes awake, Yes oriented to person, Yes oriented to place and Yes oriented to time HENMT: COMMON NORMALS: normocephalic, atraumatic and hearing grossly normal bilaterally HEAD & SCALP: normocephalic and atraumatic Resp: COMMON NORMALS: normal respiratory effort, No retractions, No use of accessory muscles and clear to auscultation bilaterally AUSCULTATION: clear to auscultation bilaterally Cardio: COMMON NORMALS: regular rate, regular rhythm and No murmurs present (Cardio) RATE: regular rate RHYTHM: regular rhythm GI: COMMON NORMALS: Soft to palpation and No hepatosplenomegaly present AUSCULTATION: Yes normoactive bowel sounds PALPATION: Yes Soft to palpation, No Tenderness to palpation present (GI), No Guarding due to palpation present (GI) and Yes No hepatosplenomegaly present Extremity: COMMON NORMALS: capillary refill normal and no clubbing, cyanosis or edema OTHER: Left wrist swollen deformity particularly at the distal radius Neuro: SENSORIUM/ORIENTATION: Yes oriented to person, Yes oriented to place and Yes oriented to time Skin: COMMON NORMALS: no rashes or lesions noted GENERAL SKIN EXAM: no rashes or lesions noted Course Vital Signs: Vital signs: Vital Signs Temperature 98.2 F 10/31/21 09:18 Pulse Rate 79 10/31/21 12:13 Respiratory Rate 17 10/31/21 12:13 Blood Pressure 155/87 10/31/21 12:13 Pulse Oximetry 94 10/31/21 09:18 MDM - Extremity (Nontraumatic) Medical Decision Making Nondisplaced distal radius and ulnar styloid fracture. Volar splint patient has pain medications continue to use those follow-up with orthopedics Medical Records I reviewed the patient's medical records. Lab Data I reviewed the patient's lab results. Radiology Impressions Wrist X-Ray 10/31/21 09:15 IMPRESSION: 1. Nondisplaced radial styloid intra-articular fracture. 2. Nondisplaced fracture base of the ulnar styloid. 3. Advanced osteoarthritis at the STT and first CMC joint. Discharge Plan Discharge Patient Disposition: Home Clinical Impression: Fracture of wrist Condition: Stable Prescriptions: No Action alprazolam 0.25 mg tablet 0.25 mg PO BID PRN0RF albuterol sulfate 90 mcg/actuation HFA aerosol inhaler 2 puff INHALATION Q6H PRN0RF bupropion HCl 150 mg tablet extended release 24 hr 150 mg PO QAM 0RF folic acid 1 mg tablet 1 mg PO QDAY 0RF gabapentin 300 mg capsule 900 mg PO TID 0RF metformin 500 mg tablet 500 mg PO BID 0RF esomeprazole magnesium [Nexium] 40 mg capsule,delayed release(DR/EC) 40 mg PO QDAY 0RF losartan 100 mg tablet 100 mg PO QDAY 0RF amlodipine [Norvasc] 10 mg tablet 10 mg PO QDAY 0RF melatonin 3 mg tablet 3 - 6 mg PO ONCE 0RF naproxen sodium 220 mg tablet 220 mg PO BID PRN0RF simethicone PO DAILY 0RF fluconazole PO .WEEKLY 0RF lidocaine 5 % adhesive patch,medicated 1 patch TOPICAL QDAY 0RF fluticasone propion-salmeterol [Advair Diskus] 250-50 mcg/dose blister with device 1 inh INHALATION BID 0RF cyanocobalamin (vitamin B-12) 4 each PO .WEEKLY PRN0RF cranberry fruit concentrate PO PRN0RF diclofenac sodium [Voltaren] 1 % gel 4 gm TOPICAL QID Qty: 400 3RF Rx Instructions: apply to single knee, ankle, foot; for foot includes sole/toes/top of foot cholecalciferol (vitamin D3) 25 mcg (1,000 unit) capsule 25 mcg PO DAILY 0RF prednisone 10 mg tablet 10 mg PO DAILY 0RF levothyroxine 25 mcg capsule 25 mcg PO ONCE 0RF zolpidem 10 mg tablet PO 0RF (DME) Diabetic Shoes with Custom Accommedative Inserts with Modifications of Left Sub Navicular for Offloading See Rx Instructions .Route .MEDSUPPLY Qty: 1 0RF Rx Instructions: As directed By [facility] cholecalciferol (vitamin D3) 25 mcg (1,000 unit) capsule 25 mcg PO DAILY 0RF ferrous sulfate 27 mg iron tablet 27 mg PO DAILY 0RF vitamin B complex [B Complex-Vitamin B12] Tablet 1 tab PO DAILY 0RF hydrocodone-acetaminophen 10-325 mg tablet 1 tab PO BID 30 Days Qty: 60 0RF Rx Instructions: fill on or after 07/31/21 hydrocodone-acetaminophen 10-325 mg tablet 1 tab PO BID MDD 3 tablets PRN (Reason: pain) 30 Days Qty: 60 0RF Rx Instructions: Fill on or after 08/29/21 morphine 60 mg tablet extended release 60 mg PO Q8H 30 Days Qty: 90 0RF Rx Instructions: Fill on or after 07/31/21 morphine 60 mg tablet extended release 60 mg PO Q8H 30 Days Qty: 90 0RF Rx Instructions: fill on or after 08/29/21 (DME) Diabetic Shoes See Rx Instructions .ROUTE .MEDSUPPLY Qty: 1 0RF Rx Instructions: as directed albuterol sulfate [ProAir HFA] 90 mcg/actuation HFA aerosol inhaler 2 inh INHALATION Q8H PRN0RF citalopram [Celexa] PO 0RF duloxetine 30 mg capsule,delayed release(DR/EC) 30 mg PO BID 0RF Otezla Starter 10 mg (4)-20 mg (4)-30 mg (47) tablets,dose pack See Rx Instructions PO PER PKG DIR Qty: 55 0RF Rx Instructions: PO per package directions; Discharge Orders: Discharge ED (Routine); Ordered 10/31/21 Ordered By: Santana Jimenez Referrals: Dwayne Echevarria DO [Primary Care Provider] - Discharge Diet: Usual diet Discharge Activity: Limit activity as instructed Patient Instructions: Opioid Safety Activity Restrictions/Additional Instructions: No use of the left hand. operations manager assistant will call and make arrangements for you to follow-up with orthopedics next week. Coding Level of Care Code ED Attractions Associate for Dieudonne Sandoval
[2021-10-31 09:18] VITALS: BP 166/102; PULSE 80; RESP 18; TEMP 36.8; O2SAT 94; BMI 33.2
[2021-10-31 11:30] VITALS: RESP 15
[2021-10-31] MEDS: morphine 4 mg/mL SDV 1 mL 6 MG IM (11:30)
[2021-10-31 12:13] VITALS: BP 155/87; PULSE 79; RESP 17
--- NOTE | 2021-11-03 08:35 | DCPLANNER ---
Addendum entered by Deanna Quintanilla 11/06/21 14:44: Patient had a follow up appointment scheduled for 11.04.21 with ortho - patient did attend appointment. Original Note: manager express had message to schedule a follow up appointment for patient with ortho. manager express sent patients information to the front office staff at ortho. Patients information will be printed and reviewed. Clinic will call patient with appointment information.
== END 2021-10-31 12:15 | disposition home or self-care (01) ==
PROVIDERS: Emergency Provider Family Medicine; PCP Family Medicine
DX: S62.102A Fracture of unspecified carpal bone, left wrist, initial encounter for closed fracture (principal); W01.0XXA Fall on same level from slipping, tripping and stumbling without subsequent striking against object, initial encounter
CPT/HCPCS: 29125; 73110; 96372; 99283; J2270

== ENCOUNTER → 2021-11-04 14:57 | Outpatient (BNVA) | payer MEDICARE, SELFPAY | PROVIDERS: PCP Family Medicine; Visit Provider Nurse Practitioner Family | DX: S62.102A Fracture of unspecified carpal bone, left wrist, initial encounter for closed fracture (principal); W18.30XA Fall on same level, unspecified, initial encounter; Z91.81 History of falling | CPT/HCPCS: 73110; 99204 ==

== ENCOUNTER 2021-11-04 15:53 | Outpatient (CLI) | payer MEDICARE, SELFPAY | END 2021-11-04 15:54 | disposition home or self-care (01) | LOC: SPT 15:54 | PROVIDERS: PCP Family Medicine; Visit Provider Nurse Practitioner Family | DX: R26.81 Unsteadiness on feet (principal) | CPT/HCPCS: 97760; L3982 ==

== ENCOUNTER → 2021-11-26 13:34 | Outpatient (BNVA) | payer MEDICARE, SELFPAY | PROVIDERS: PCP Family Medicine; Visit Provider Orthopaedic Surgery | DX: S52.572A Other intraarticular fracture of lower end of left radius, initial encounter for closed fracture (principal); X58.XXXA Exposure to other specified factors, initial encounter | CPT/HCPCS: 73110; 99213; 99214 ==

== ENCOUNTER 2021-12-01 09:50 | Day surgery (SDC) | payer MEDICARE, SELFPAY ==
[2021-11-28 13:54] VITALS: BMI 33.2
--- NOTE | 2021-12-01 | SCC_ITS ---
Procedure done: Open reduction and internal fixation intra-articular fracture left distal radius, 3 part 54.4 seconds of fluoroscopic guidance, for a cumulative dose of 0.94 mGy, was provided to Dr. Tapia by the radiology department. C-arm images of the LEFT wrist were saved for the patient's permanent record. [facility]
[2021-12-01 10:25] VITALS: BP 138/85; PULSE 83; RESP 16; TEMP 36.6; O2SAT 93
[2021-12-01] MEDS: sodium chloride 0.9% 1,000 ML 30 ML IV (10:40)
[2021-12-01 10:43] LABS: Glucose Point of Care 88 mg/dL (70-110)
[2021-12-01 11:25] VITALS: RESP 16; O2SAT 95
[2021-12-01] MEDS: fentaNYL 50 mcg/mL INJ 2mL 100 MCG IVP (11:25)
--- NOTE | 2021-12-01 11:47 | ANES.PREANE2 ---
Pre-Anesthetic Assessment Height/Weight: Height 1.7 m Weight 96.162 kg Temp Pulse Resp BP Pulse Ox 98 F 83 16 138/85 95 12/01/21 10:25 12/01/21 10:25 12/01/21 11:25 12/01/21 10:25 12/01/21 11:25 Preop Diagnosis: Fracture left distal radius Operation Date: 12/01/21 11:30 Proposed Procedures p ORIF of left distal radius: 43740,S52.872A(Left) - Martin Tapia MD Familial anesthetic complications: none Was Beta Harini taken within 24 hours: N/A Was Clonidine taken within 24 hours: N/A Last intake: Intake Last Liquid Date 11/30/21 Last Liquid Time 00:00 Last Solid Date 12/01/21 Last Solid Time 19:00 Social No alcohol and No tobacco Exam alert, oriented x 3, clear to auscultation bilaterally and regular rate & rhythm Airway Submandibular: within normal limits Cervical ROM: Other (some limitatioin secondary to pain) Mallampati: Class II Dentition: chipped Pulmonary Asthma CV/HEM Anemia and Hypertension GI Gastroesophageal Reflux Disease Metabolic Diabetes Mellitus and Morbid Obesity chronic steroids Musc/skel chronic pain/opioid Neuropsych Anxiety, Depression and Neuropathy Anesthetic Plan ASA status: 3 Anesthesia: General and Regional (specify below) (left interscalene) Medications/Allergies Home Medications Medication Instructions Recorded Confirmed Last Taken Type alprazolam 0.25 mg tablet 0.25 mg PO BID PRN 07/10/19 12/01/21 11/30/21 History amlodipine 10 mg tablet (Norvasc) 10 mg PO QDAY 07/10/19 12/01/21 11/30/21 History bupropion HCl 150 mg 24 hr tablet, 150 mg PO QAM 07/10/19 12/01/21 11/30/21 History extended release esomeprazole magnesium 40 mg 40 mg PO QDAY 07/10/19 12/01/21 11/30/21 History capsule,delayed release (Nexium) fluconazole PO .WEEKLY 07/10/19 11/26/21 11/30/21 History fluticasone 250 mcg-salmeterol 50 1 inh INHALATION BID 07/10/19 12/01/21 11/30/21 History mcg/dose blistr powdr for inhalation (Advair Diskus) folic acid 1 mg tablet 1 mg PO QDAY 07/10/19 12/01/21 11/30/21 History gabapentin 300 mg capsule 900 mg PO TID cap 07/10/19 12/01/21 12/01/21 History lidocaine 5 % topical patch 1 patch TOPICAL QDAY 07/10/19 11/28/21 Unknown History losartan 100 mg tablet 100 mg PO QDAY 07/10/19 12/01/21 11/30/21 History melatonin 3 mg tablet 3 - 6 mg PO BEDTIME tab 07/10/19 12/01/21 Unknown History metformin 500 mg tablet 500 mg PO BID 07/10/19 12/01/21 11/30/21 History naproxen sodium 220 mg tablet 220 mg PO BID 07/10/19 12/01/21 11/30/21 History simethicone PO DAILY 07/10/19 11/26/21 11/30/21 History albuterol sulfate 90 mcg/actuation 2 inh INHALATION Q8H PRN 10/17/19 12/01/21 11/27/21 History aerosol inhaler (ProAir HFA) cranberry fruit concentrate [Azo PO PRN 10/17/19 11/26/21 Unknown History Cranberry] cyanocobalamin (vitamin B-12) 4 each PO .WEEKLY 10/17/19 11/28/21 Unknown History Diabetic Shoes #1 each 11/07/19 11/26/21 Unknown Rx diclofenac sodium 1 % topical gel 4 gm TOPICAL QID #400 gm 03/19/20 11/28/21 Unknown Rx (Voltaren) cholecalciferol (vitamin D3) 25 25 mcg PO DAILY 09/19/20 12/01/21 11/30/21 History mcg (1,000 unit) capsule prednisone 10 mg tablet 10 mg PO DAILY 09/19/20 12/01/21 11/30/21 History zolpidem 10 mg tablet PO 09/19/20 11/26/21 11/30/21 History Diabetic Shoes with Custom #1 ea 03/20/21 11/26/21 Unknown Rx Accommedative Inserts with Modifications of Left Sub Navicular for Offloading citalopram [Celexa] PO 03/21/21 11/26/21 11/30/21 History apremilast 10 mg (4)-20 mg (4)-30 See Rx Instructions PO PER PKG DIR 04/17/21 12/01/21 11/30/21 Rx mg (47) tablets in a dose pack #55 ea (Otezla Starter) ferrous sulfate 27 mg iron tablet 27 mg PO DAILY 07/22/21 12/01/21 11/30/21 History hydrocodone 10 mg-acetaminophen 1 tab PO BID PRN 30 Days #60 tab 07/30/21 11/28/21 Unknown Rx 325 mg tablet MDD 3 tablets morphine 60 mg tablet,extended 60 mg PO Q8H 30 Days #90 tab 07/30/21 12/01/21 12/01/21 07:00 Rx release Fast form cast #1 ea 11/04/21 11/26/21 Unknown Rx venlafaxine 75 mg tablet 75 mg PO BID 11/28/21 12/01/21 11/30/21 History Allergies Allergy/AdvReac Type Severity Reaction Status Date / Time adhesive tape AdvReac VARIES, Verified 11/26/21 13:59 PAPER TAPE, SOME BANDAID BRANDS tolmetin [From Tolectin] AdvReac LOW BP, Verified 11/26/21 13:59 PASSED OUT Current Medications Generic Name Dose Route Start Last Admin Trade Name Freq PRN Reason Stop Dose Admin Sodium Chloride 1,000 mls @ 30 mls/hr 12/01/21 10:00 12/01/21 10:40 Sodium Chloride 0.9% IV 12/02/21 09:59 30 mls/hr .Q24H ALF Administration PFSH Anesthesia Medical History Acquired scoliosis Cervical spine pain Chronic neck and back pain Chronic osteoarthritis Chronic pain of right knee DDD (degenerative disc disease), lumbar Spinal stenosis and radicular pain Diabetes Encounter for long-term opiate analgesic use Long-term use of high-risk medication Obesity Painful diabetic neuropathy Psoriasis Surgical History History of placement of ear tubes 9 years ago -left side S/P cholecystectomy S/P hysterectomy Family History Family/Other CAD (coronary artery disease) Hypertension Mother Hyperlipidemia Hypertension Grandmother Cancer Grandfather CAD (coronary artery disease) Denies family history of Diabetes Lupus Anesthesia complication Bleeding disorder Stroke Social History Smoking and tobacco status: never smoked Second hand smoke exposure: No Alcohol intake: never History of recent travel: No Data Anesthesia Cardiac Studies: No Data to Display Anesthesia Procedures Nerve Block Nerve Block 1: Main Anesthesia: general anesthesia Consent: requested by attending/covering physician, from patient, risks and benefits reviewed and patient agrees to proceed Nerve block location: interscalene (left) Anesthesia monitors applied: pulse oximetry, EKG, BP cuff and oxygen Nerve block position: semi sitting Anesthetic Used: ropivicaine 0.5% Amount of anesthesia used (mL): 30 Ultrasound used to: recognize landmarks and visualize and ID brachial plexus Nerve Stimulator Used?: No Interscalene/Femoral BLK: 2 stimuplex 22 g needle used for position and inplane approach Injection: neg aspiration of heme Patient Tolerated Procedure: well Complications: none
--- NOTE | 2021-12-01 11:58 | W.PM.OPSUD ---
Surgery/Procedure H&P Update DATE OF PROCEDURE: December 01, 2021 DATE H&P PERFORMED: 11/26/21 H&P UPDATE INFORMATION: I have reviewed H&P completed within last 30 days PREOP DIAGNOSIS: Fracture left distal radius PLANNED PROCEDURE: Operation Date: 12/01/21 11:30 Proposed Procedures p ORIF of left distal radius: 76497,S52.872A(Left) - Martin Tapia MD
--- NOTE | 2021-12-01 12:39 | XR_ITS ---
WS: [id number] C-ARM RADIOGRAPHS LEFT WRIST; 2 IMAGES HISTORY: OR PICS-orif of left distal radius COMPARISON: 11/26/2021 Intraoperative imaging for fixation and reduction of comminuted distal radial metaphyseal fracture wi th intra-articular extension. Fracture now appears to be in better position alignment. XR/XR wrist LT 2V [id number] IMPRESSION: Intraoperative imaging during fixation distal radial fracture.
--- NOTE | 2021-12-01 13:58 | PM.OP ---
Operative Report Date of procedure: December 01, 2021 Pre-op diagnosis: Preop Diagnosis Fracture left distal radius Post-op diagnosis: same Post-op diagnosis: Left intra-articular fracture left distal radius 3 part Procedure done: Open reduction and internal fixation intra-articular fracture left distal radius, 3 part Surgeon: Martin Tapia Anesthesia: General and Nerve Block (Interscalene block) Estimated blood loss (mL): 25 Tourniquet time (min): 40 Complications: None Findings: Patient had a intra-articular fracture of the left distal radius consisting of unstable volar Hall fragment and a displaced dorsal fragment with incomplete union of the fracture fragments. Bone quality was poor Brief History: The patient is a 75-year-old female who sustained a left distal radius fracture as a result of a fall. Initial radiographs showed no displacement of the intra-articular fracture. At 4 weeks follow-up there were displacement of both the volar and dorsal fragment with significant border and proximal displacement of the volar fragment Procedure: Initial attempts were made at closed reduction however a satisfactory stable reduction could not be obtained. A decision was made to proceed with open reduction internal fixation.A 5 cm long incision was made along over the flexor carpi radialis tendon. Dissection was carried down through the tendon sheath. Dissection was carried down bluntly to the pronator quadratus. The pronator quadratus was elevated off of the distal radius leaving a cuff for later repair. Initially a scar tissue was removed from the volar aspect of the fracture and a [place] could be placed into the fracture mobilization of the volar and dorsal fragments. A [place] [employer] narrow short plate was applied. Distal fixation was accomplished through the oblong hole compressing the plate to bone and allowing distal portion of the plate to reduce the volar distal fragment. Longitudinal traction and volar directed force could then be applied across the dorsal fragment aligning it to the volar fragment. The plate was fixed distally with 5 locking screws and proximally with 4 nonlocking (2 through the oblong hole) and 1 locking bicortical screws. Intraoperative imaging showed excellent position of the hardware. The wound was irrigated with saline. The pronator quadratus was reapproximated with 2-0 Vicryl. Subcutaneous tissues were closed with 2-0 Vicryl. The skin was closed with skin claudia. Sterile dressings and a volar splint were applied. The patient was taken to outpatient surgery in stable condition.
[2021-12-01 14:00] VITALS: BP 163/88; PULSE 82; RESP 18; TEMP 36.6; O2SAT 96
[2021-12-01 14:05] VITALS: BP 172/86; PULSE 82; RESP 18; O2SAT 96
--- NOTE | 2021-12-01 14:06 | SUR.PHASEI ---
1359 PT TO PACU 5 PT AWAKE ALERT, WITH GOOD RESP NOTED PT ID BRACELET TO LT WRIST, PT ID'D WITH 2 IDENTIFIERS, IV TO RT WRIST WITH #20 NS 300ML AT KVO RATE PER GRAVITY, MONITOR SR WITH NO ECTOPY, PT ASKING FOR A CUP OF COFFEE. 1410 PT COMPLAINS OF RT SHOULDER AND ELBOW PAIN AND RT KNEE , WARM BLANKETS TO SHOULDER AND ARM FOR COMFORT, HOB AT 40 DEGREES, PT NOW ON RA TRIAL.
[2021-12-01 14:10] VITALS: BP 168/95; PULSE 82; RESP 20; TEMP 36.6; O2SAT 96
--- NOTE | 2021-12-01 14:14 | SUR.PHASEI ---
LT DISTAL HAND PINK AND WARM WITH CAP REFILL LESS THAN 3 SECONDS.
[2021-12-01 14:19] VITALS: BP 171/95; PULSE 84; RESP 15; TEMP 36.8; O2SAT 94
--- NOTE | 2021-12-01 16:08 | ANE.PACU2 ---
Inpatient post-anesthesia follow up: Airway intact: Yes Vital signs: Temperature 98.2 F Pulse Rate 84 Respiratory Rate 15 Blood Pressure 171/95 Pulse Oximetry 94 Oxygen Delivery Me thod Room Air Oxygen Flow Rate 8 Fraction of Inspir ed Oxygen Hydration adequate: Yes Nausea and vomiting: No Pain level: 2 Mental status: Baseline
== END 2021-12-01 15:10 | disposition home or self-care (01) ==
PROVIDERS: PCP Family Medicine; Visit Provider Orthopaedic Surgery
PROC: (CPT 25609; principal; 2021-12-01 11:30)
DX: S52.572A Other intraarticular fracture of lower end of left radius, initial encounter for closed fracture (principal); W19.XXXA Unspecified fall, initial encounter; I10 Essential (primary) hypertension; K21.9 Gastro-esophageal reflux disease without esophagitis; E66.01 Morbid (severe) obesity due to excess calories; Z68.33 Body mass index [BMI] 33.0-33.9, adult; Z79.52 Long term (current) use of systemic steroids; G89.29 Other chronic pain; Z79.891 Long term (current) use of opiate analgesic; F41.9 Anxiety disorder, unspecified; F32.9 Major depressive disorder, single episode, unspecified; Z79.84 Long term (current) use of oral hypoglycemic drugs; E11.42 Type 2 diabetes mellitus with diabetic polyneuropathy; Z82.49 Family history of ischemic heart disease and other diseases of the circulatory system
CPT/HCPCS: 25609; 36416; 73100; 76000; 82962; C1713; J1580; J2405; J2704; J2710; J2795; J3010; J3490; J7030

== ENCOUNTER 2021-12-05 13:17 | Outpatient (CLI) | payer MEDICARE, SELFPAY | END 2021-12-05 13:18 | disposition home or self-care (01) | LOC: SPT 13:18 | PROVIDERS: PCP Family Medicine; Visit Provider Nurse Practitioner Family | DX: Z47.89 Encounter for other orthopedic aftercare (principal) | CPT/HCPCS: L3908 ==

== ENCOUNTER 2021-12-15 12:38 | Outpatient (CLI) | payer MEDICARE, SELFPAY ==
--- NOTE | 2021-12-15 12:44 | XR_ITS ---
WS: [id number] LEFT WRIST: 3 VIEW(S) TECHNIQUE: PA, oblique and lateral. HISTORY: Intra-articular fracture of distal end of left radius COMPARISON: 12/01/2021, 11/26/2021 Volar plate and screws stabilize a distal comminuted radial fracture which extends intra-articular. T he distal lateral radial fracture is not fixated with increasing lucency and nonfusion across the fra cture site. There is an additional lucency developing in the distal ulna which may be part of an eros ion or unhealed fracture. Extensive osteopenia. Advanced degenerative changes at the wrist. There is a large amount soft tissue edema and swelling surrounding the wrist with elevation of the pr onator quadratus fat pad. Row of sutures remains over the volar wrist. XR/XR wrist LT min 3V* [id number] IMPRESSION: 1. Status post fixation distal radial fracture. 2. Diffuse osteopenia with advanced degenerative changes at the wrist. 3. Large amount of soft tissue edema and swelling surrounding the wrist are gr eatest along the volar aspect. Correlate for possible hematoma or developing ab scess in this location due to the extensive edema. May all be satisfactory post operative edema.
== END 2021-12-15 12:39 | disposition home or self-care (01) ==
LOC: RAD 12:39
PROVIDERS: PCP Family Medicine; Visit Provider Nurse Practitioner Family
DX: S52.572D Other intraarticular fracture of lower end of left radius, subsequent encounter for closed fracture with routine healing (principal); X58.XXXD Exposure to other specified factors, subsequent encounter; M85.88 Other specified disorders of bone density and structure, other site
CPT/HCPCS: 73110; 99024

== ENCOUNTER → 2022-01-13 08:41 | Outpatient (BNVA) | payer MEDICARE, SELFPAY | PROVIDERS: PCP Family Medicine; Visit Provider Nurse Practitioner Family | DX: Z98.890 Other specified postprocedural states (principal); S52.202K Unspecified fracture of shaft of left ulna, subsequent encounter for closed fracture with nonunion; X58.XXXD Exposure to other specified factors, subsequent encounter | CPT/HCPCS: 73110; 99024; 99214 ==

== ENCOUNTER → 2022-01-15 12:18 | Outpatient (BNVA) | payer MEDICARE, SELFPAY | PROVIDERS: PCP Family Medicine; Visit Provider Family Medicine | DX: E03.9 Hypothyroidism, unspecified (principal) | CPT/HCPCS: 84443 ==

== ENCOUNTER → 2022-04-14 09:31 | Outpatient (BNVA) | payer MEDICARE, SELFPAY | PROVIDERS: PCP Family Medicine; Visit Provider Nurse Practitioner Family | DX: E11.42 Type 2 diabetes mellitus with diabetic polyneuropathy (principal); M76.829 Posterior tibial tendinitis, unspecified leg; L60.3 Nail dystrophy; M14.672 Charcot's joint, left ankle and foot; Q66.82 Congenital vertical talus deformity, left foot; Z79.84 Long term (current) use of oral hypoglycemic drugs; S52.572A Other intraarticular fracture of lower end of left radius, initial encounter for closed fracture; Z98.890 Other specified postprocedural states; X58.XXXA Exposure to other specified factors, initial encounter | CPT/HCPCS: 73110; 99213; 99214 ==

== ENCOUNTER → 2022-07-23 14:14 | Outpatient (BNVA) | payer MEDICARE, SELFPAY | PROVIDERS: PCP Family Medicine; Visit Provider Family Medicine | DX: M79.2 Neuralgia and neuritis, unspecified (principal); E03.9 Hypothyroidism, unspecified; E11.40 Type 2 diabetes mellitus with diabetic neuropathy, unspecified; Z79.891 Long term (current) use of opiate analgesic; E11.9 Type 2 diabetes mellitus without complications; M54.2 Cervicalgia; E11.42 Type 2 diabetes mellitus with diabetic polyneuropathy; M25.561 Pain in right knee; M19.90 Unspecified osteoarthritis, unspecified site; M51.36 Other intervertebral disc degeneration, lumbar region; G89.29 Other chronic pain; L40.9 Psoriasis, unspecified | CPT/HCPCS: 80053; 80061; 82607; 83036; 85025 ==

== ENCOUNTER → 2022-09-08 10:40 | Outpatient (BNVA) | payer MEDICARE, SELFPAY | PROVIDERS: PCP Family Medicine; Visit Provider Clinical Nurse Specialist Adult Health | DX: M79.2 Neuralgia and neuritis, unspecified (principal); J01.40 Acute pansinusitis, unspecified; R25.2 Cramp and spasm | CPT/HCPCS: 83735; 84132 ==

== ENCOUNTER 2022-10-30 13:54 | Outpatient (CLI) | payer MEDICARE, SELFPAY ==
--- NOTE | 2022-10-30 14:12 | XR_ITS ---
WS: [id number] Lateral views of cervical spine in the flexion, extension and neutral positions. 10/30/2022 Clinical Data: M54.2 - Cervicalgia Comparison: CT cervical spine, 09/11/2020 Findings: There is loss of normal lordotic curvature. There is degenerative disc narrowing at all disc levels f rom C3 to-3 through C6-7. There is osteoarthritis of all the cervical vertebral bodies from C3 throug h C7. There is an anterior subluxation of 0.5 cm of C3 on C4 and 0.3 cm of C2 on C3. There is no prev ertebral soft tissue swelling. On flexion and extension there is limitation of motion but no change i n the subluxation. No compression fractures are seen. XR/XR cervical spine fl/ex [id number] Impression: 1. Multilevel degenerative disc narrowing with osteoarthritis and loss of jovana l lordotic curvature. 2. Anterior subluxation of 0.5 cm of C3 on C4 and 0.3 cm of C2 on C3. 3. Limitation of motion on flexion and extension but no change in subluxation.
== END 2022-10-30 13:55 | disposition home or self-care (01) ==
PROVIDERS: PCP Family Medicine; Visit Provider Family Medicine
DX: M54.2 Cervicalgia (principal)
CPT/HCPCS: 72040

== ENCOUNTER → 2022-11-19 14:12 | Outpatient (BNVA) | payer MEDICARE, SELFPAY | PROVIDERS: PCP Family Medicine; Visit Provider Family Medicine | DX: E55.9 Vitamin D deficiency, unspecified (principal); E11.9 Type 2 diabetes mellitus without complications; M79.2 Neuralgia and neuritis, unspecified; E03.9 Hypothyroidism, unspecified; M54.2 Cervicalgia; M54.9 Dorsalgia, unspecified; G89.29 Other chronic pain; M19.90 Unspecified osteoarthritis, unspecified site | CPT/HCPCS: 80053; 80061; 82306; 82607; 83036; 84443; 85025; 86140 ==

== ENCOUNTER → 2023-02-11 11:07 | Outpatient (BNVA) | payer MEDICARE, SELFPAY | PROVIDERS: PCP Family Medicine; Visit Provider Anesthesiology Pain Medicine | DX: M25.561 Pain in right knee (principal); G89.29 Other chronic pain; M17.11 Unilateral primary osteoarthritis, right knee | CPT/HCPCS: 73562; 99204 ==

== ENCOUNTER → 2023-03-02 09:55 | Outpatient (BNVA) | payer MEDICARE, SELFPAY | PROVIDERS: PCP Family Medicine; Visit Provider Anesthesiology Pain Medicine | DX: M25.561 Pain in right knee (principal); G89.29 Other chronic pain | CPT/HCPCS: 20610; 99214; J1030; J3490 ==

== ENCOUNTER → 2023-06-01 10:18 | Outpatient (BNVA) | payer MEDICARE, SELFPAY | PROVIDERS: PCP Family Medicine; Visit Provider Anesthesiology Pain Medicine | DX: M25.561 Pain in right knee (principal); G89.29 Other chronic pain | CPT/HCPCS: 99214 ==

== ENCOUNTER → 2023-07-07 12:57 | Outpatient (BNVA) | payer MEDICARE, SELFPAY | PROVIDERS: PCP Family Medicine; Visit Provider Anesthesiology Pain Medicine | DX: M17.11 Unilateral primary osteoarthritis, right knee (principal); G89.29 Other chronic pain | CPT/HCPCS: 20610; 99214; J1030; J3490 ==

== ENCOUNTER → 2023-08-09 13:26 | Outpatient (BNVA) | payer MEDICARE, SELFPAY | PROVIDERS: PCP Family Medicine; Visit Provider Family Medicine | DX: Z79.899 Other long term (current) drug therapy (principal); Z79.891 Long term (current) use of opiate analgesic; E03.9 Hypothyroidism, unspecified; R06.02 Shortness of breath; K44.9 Diaphragmatic hernia without obstruction or gangrene | CPT/HCPCS: 71046; 80053; 83880; 84443; 85025 ==

== ENCOUNTER → 2023-10-06 10:44 | Outpatient (BNVA) | payer MEDICARE, SELFPAY | PROVIDERS: PCP Family Medicine; Visit Provider Anesthesiology Pain Medicine | DX: G89.29 Other chronic pain; M17.11 Unilateral primary osteoarthritis, right knee | CPT/HCPCS: 20610; 99214 ==

== ENCOUNTER → 2023-11-24 10:54 | Outpatient (BNVA) | payer MEDICARE, SELFPAY | PROVIDERS: PCP Family Medicine; Visit Provider Anesthesiology Pain Medicine | DX: M25.531 Pain in right wrist (principal); M25.539 Pain in unspecified wrist; M25.579 Pain in unspecified ankle and joints of unspecified foot | CPT/HCPCS: 73100; 73600; 99214 ==

== ENCOUNTER → 2023-12-08 11:19 | Outpatient (BNVA) | payer MEDICARE, SELFPAY | PROVIDERS: PCP Family Medicine; Visit Provider Anesthesiology Pain Medicine | DX: G89.29 Other chronic pain; M25.561 Pain in right knee | CPT/HCPCS: 20610; 99214; J1010; J3490 ==

== ENCOUNTER → 2023-12-30 11:48 | Outpatient (BNVA) | payer MEDICARE, SELFPAY | PROVIDERS: PCP Family Medicine; Visit Provider Family Medicine | DX: E11.9 Type 2 diabetes mellitus without complications (principal); E03.9 Hypothyroidism, unspecified; G47.19 Other hypersomnia; R42 Dizziness and giddiness | CPT/HCPCS: 80053; 82607; 82652; 83036; 84443; 85025 ==

== ENCOUNTER → 2024-01-06 10:55 | Outpatient (BNVA) | payer MEDICARE, SELFPAY | PROVIDERS: PCP Family Medicine; Visit Provider Student in an Organized Health Care Education/Training Program | DX: M25.561 Pain in right knee (principal); M25.562 Pain in left knee; M17.11 Unilateral primary osteoarthritis, right knee | CPT/HCPCS: 73560; 73565; 99204 ==

== ENCOUNTER → 2024-04-04 14:30 | Outpatient (BNVA) | payer MEDICARE, SELFPAY | PROVIDERS: PCP Family Medicine; Visit Provider Student in an Organized Health Care Education/Training Program | DX: Z01.818 Encounter for other preprocedural examination (principal); E11.42 Type 2 diabetes mellitus with diabetic polyneuropathy | CPT/HCPCS: 83036; 85025; 99213 ==

== ENCOUNTER 2024-04-24 16:45 | Observation (INO) | payer MEDICARE, SELFPAY ==
[2024-04-24] VITALS (22 sets, daily range): BP systolic 95–187; BP diastolic 60–108; PULSE 79–101; RESP 11–25; TEMP 36.4–37.6; O2SAT 91–96; BMI 35.7
[2024-04-24 12:39] LABS: Bilirubin Urine Negative (Negative); Blood Urine Negative (Negative); Glucose Urine UA Negative (Normal); Ketones Urine Negative (Negative); Leukocyte Esterase Urine Trace (Negative); Nitrate Urine Negative (Negative); Protein Urine 1+ (Negative); Urine Appearance Cloudy (CLEAR); Urine Color Yellow (Yellow); pH Urine 6.5 (5-7)
[2024-04-24 12:44] LABS: Add Urine Microscopic? YES; Bacteria Urine None Seen /hpf; Hyaline Casts Urine 7.42 /lpf; RBC Urine 0-2 /hpf (0-2); Squamous Epithelial Cell Urine 0-5 /hpf (0-5); WBC Urine 0-5 /hpf (0-5)
--- NOTE | 2024-04-24 12:50 | SUR.PREOP ---
Patient comes into pre op with very large dark purple bruise on right arm in the AC to upper arm area. She states she has this from opening a box . Patient also comes in with yellow bruise to right forehead and eye. she states she got this from falling on her porch days ago.
[2024-04-24 13:00] LABS: Mucus Urine 1+ /hpf; UA Slide Review UA Slide Review Perf
[2024-04-24 13:01] LABS: Add Urine Culture? No
--- NOTE | 2024-04-24 13:04 | P.ANESASSM_ITS ---
Pre-Anesthetic Assessment Height/Weight: Height 1.6 m Weight 91.626 kg Temp Pulse Resp BP Pulse Ox O2 Del Method 97.6 F 80 16 146/85 96 Room Air 04/24/24 12:40 04/24/24 12:40 04/24/24 12:40 04/24/24 12:40 04/24/24 12:40 04/24/24 12:41 Operation Date: 04/24/24 13:20 Proposed Procedures p Abdullahi Robot Total Knee Arthroplasty(Right) - Bart Santos DO Familial anesthetic complications: Slow to wake up Was Beta Harini taken within 24 hours: N/A Was Clonidine taken within 24 hours: N/A Last intake: Intake Last Liquid Date 04/23/24 Last Liquid Time 23:45 Last Solid Date 04/23/24 Last Solid Time 23:59 Social No alcohol and No tobacco Exam alert, oriented x 3, clear to auscultation bilaterally and regular rate & rhythm Airway Mallampati: Class II Dentition: chipped Pulmonary Chronic Obstructive Pulmonary Disease CV/HEM Hypertension GI Gastroesophageal Reflux Disease Metabolic Diabetes Mellitus and Thyroid Disease [facility] [place] psoriatic arthritis Anesthetic Plan ASA status: 3 Anesthesia: Regional (specify below) Risk of > 500 ml blood loss (7ml/kg in children): No Medications/Allergies Home Medications Medication Instructions Recorded Confirmed Last Taken Type esomeprazole magnesium 40 mg 40 mg PO QDAY 07/10/19 04/21/24 04/24/24 History capsule,delayed release (Nexium) fluticasone 250 mcg-salmeterol 50 1 inh inhalation BID 07/10/19 04/21/24 11/30/21 History mcg/dose blistr powdr for inhalation (Advair Diskus) folic acid 1 mg tablet 1 mg PO QDAY 07/10/19 04/21/24 04/21/24 History lidocaine 5 % topical patch 1 patch topical QDAY 07/10/19 04/21/24 Unknown History melatonin 3 mg tablet 3 - 6 mg PO BEDTIME 07/10/19 04/21/24 04/20/24 History naproxen sodium 220 mg tablet 220 mg PO BID 07/10/19 04/24/24 04/18/24 History simethicone 1 tab PO DAILY 07/10/19 04/24/24 04/21/24 History cranberry fruit concentrate [Azo PO PRN UTI 10/17/19 04/11/24 Unknown History Cranberry] cyanocobalamin (vitamin B-12) 4 each PO .WEEKLY 10/17/19 04/21/24 Unknown History diclofenac sodium 1 % topical gel 4 gm topical QID osteoarthritis 03/19/20 04/21/24 Unknown Rx (Voltaren) #400 grams cholecalciferol (vitamin D3) 25 25 mcg PO DAILY 09/19/20 04/21/24 04/21/24 History mcg (1,000 unit) capsule Diabetic Shoes with Custom #1 ea 03/20/21 04/04/24 Unknown Rx Accommedative Inserts with Modifications of Left Sub Navicular for Offloading nystatin 100,000 unit/gram topical g topical 03/30/22 04/04/24 Unknown History cream albuterol sulfate 90 mcg/actuation 2 inh inhalation Q8H PRN Shortness 03/04/23 04/21/24 Unknown Rx aerosol inhaler (ProAir HFA) Of Breath #8.5 grams betamethasone dipropionate 0.05 % 1 applic topical BID PRN skin 11/10/23 04/21/24 Unknown Rx topical cream irritation #45 grams fluconazole 100 mg tablet 100 mg PO .weekly PRN fungal 11/10/23 04/21/24 Unknown Rx infection #52 tabs prednisone 10 mg tablet 10 mg PO DAILY inflammation #90 11/10/23 04/21/24 04/21/24 Rx tabs levothyroxine 25 mcg tablet 25 mcg PO DAILY thyroid #90 tabs 12/17/23 04/21/24 04/23/24 Rx alprazolam 0.25 mg tablet 0.25 mg PO BID PRN Anxiety #180 12/22/23 04/21/24 Unknown Rx tabs mupirocin 2 % topical ointment 1 applic topical BID skin 12/30/23 04/21/24 Unknown Rx infection #22 grams zolpidem 10 mg tablet 10 mg PO .qhs #90 tabs 03/20/24 04/21/24 04/22/24 Rx furosemide 20 mg tablet 20 mg PO DAILY edema #30 tabs 03/30/24 04/21/24 04/21/24 Rx hydrocodone 10 mg-acetaminophen 1 tab PO BID PRN pain 30 days #60 04/23/24 04/24/24 04/23/24 Rx 325 mg tablet tabs morphine 60 mg tablet,extended 60 mg PO Q8H pain 30 days #90 tabs 04/23/24 04/24/24 04/24/24 Rx release amlodipine 5 mg tablet 5 mg PO DAILY 04/24/24 04/24/24 04/23/24 History bupropion HCl 150 mg 24 hr tablet, 150 mg PO DAILY 04/24/24 04/24/24 04/23/24 History extended release gabapentin 300 mg capsule 900 mg PO TID 04/24/24 04/24/24 04/23/24 History losartan 100 mg tablet 100 mg PO DAILY 04/24/24 04/24/24 04/23/24 History venlafaxine 75 mg capsule,extended 75 mg PO DAILY 04/24/24 04/24/24 04/21/24 History release 24 hr Allergies Allergy/AdvReac Type Severity Reaction Status Date / Time adhesive tape AdvReac VARIES, Verified 04/21/24 09:34 PAPER TAPE, SOME BANDAID BRANDS tolmetin [From Tolectin] AdvReac LOW BP, Verified 04/21/24 09:34 PASSED OUT [facility] Anesthesia Medical History Psoriasis Chronic neck and back pain Chronic pain of right knee Diabetes Encounter for long-term opiate analgesic use Cervical spine pain Long-term use of high-risk medication DDD (degenerative disc disease), lumbar Spinal stenosis and radicular pain Obesity Painful diabetic neuropathy Chronic osteoarthritis Acquired scoliosis Surgical History S/P hysterectomy S/P cholecystectomy History of placement of ear tubes 9 years ago -left side Family History Family/Other CAD (coronary artery disease) Hypertension Mother Hyperlipidemia Hypertension Grandmother Cancer Grandfather CAD (coronary artery disease) Denies family history of Diabetes Lupus Anesthesia complication Bleeding disorder Stroke Social History Smoking and tobacco/nicotine status: never used tobacco/nicotine Second hand smoke exposure: No Alcohol intake: never Substance/Drug Use: never Data Anesthesia Urine 04/24/24 Range/Units 12:30 Urine Color Yellow (Yellow) Urine Appearance Cloudy A (CLEAR) Urine pH 6.5 (5-7) Ur Specific Clyde 1.030 (1.005-1.030) Urine Protein 1+ A (Negative) Urine Glucose (UA) Negative (Normal) Urine Ketones Negative (Negative) Urine Nitrate Negative (Negative) Urine Bilirubin Negative (Negative) Ur Leukocyte Esterase Trace A (Negative) Urine RBC 0-2 (0-2) /hpf Urine WBC 0-5 (0-5) /hpf Cardiac Studies: No Data to Display
[2024-04-24] MEDS: acetaminophen 1,000 MG/100 ML PIGGYBACK 400 MG IV (13:31)
[2024-04-24] MEDS: ketorolac 30 mg/mL INJ IVP (13:32)
[2024-04-24] MEDS: sodium chloride 0.9% 1,000 ML 30 ML IV (13:32)
[2024-04-24 13:34] LABS: Basophils % 0.4 %; Eosinophils # 0.2 10^3/uL (0.0-0.8); Eosinophils % 2.9 %; Hematocrit 40.8 % (36-47); Lymphocytes # 1.8 10^3/uL (0.8-4.8); Lymphocytes % 21.3 %; Mean Corpuscular HGB Conc 31.4 g/dL (30-55); Mean Corpuscular Hemoglobin 27.5 pg (27-33); Mean Corpuscular Volume 87.7 fl (85-98); Mean Platelet Volume 11.4 fL (7.4-10.4); Monocytes # 0.5 10^3/uL (0.2-0.9); Monocytes % 6.3 %; Neutrophils # 5.67 10^3/uL (1.8-7.7); Neutrophils % 68.7 %; Nucleated Red Blood Cells % 0 %; Platelet Count 192 10^3/cmm (157-399); Red Blood Count 4.65 10^6/uL (3.85-5.65); Red Cell Distribution Width 14.8 % (12.1-15.1); White Blood Count 8.25 10^3/uL (3.29-11.43)
--- NOTE | 2024-04-24 13:35 | W.PM.OPSUD ---
Surgery/Procedure H&P Update DATE OF PROCEDURE: April 24, 2024 DATE H&P PERFORMED: 04/04/24 CHANGES TO PREVIOUS DOCUMENTATION: Patient's clear the preoperative clearance process recheck of her UA today no bacteria seen and completed her preoperative antibiotics per the preoperative clinic with Dr. Kidd. This point time she cleared to proceed with surgical intervention. Understands the ins and outs of procedure the risk benefits complication alternatives surgery and through shared decision-making elects proceed with surgical intervention. All questions answered at this time. PREOP DIAGNOSIS: Right knee degenerative joint disease PRIMARY INDICATION FOR PROCEDURE: Right knee degenerative joint disease PLANNED PROCEDURE: Operation Date: 04/24/24 13:20 Proposed Procedures p Abdullahi Robot Total Knee Arthroplasty(Right) - Bart Santos DO
--- NOTE | 2024-04-24 13:49 | ANES.PROC ---
Anesthesia Procedures Procedure/Date: 04/24/24 Nerve Block ^: Nerve Block 1: Main Anesthesia: general anesthesia Time Out Performed: Yes Consent: requested by attending/covering physician, from patient, from other, risks and benefits reviewed and patient agrees to proceed Nerve block location: adductor canal (R) Anesthesia monitors applied: pulse oximetry, EKG, BP cuff and oxygen Nerve block position: supine Anesthetic Used: ropivicaine 0.5% (30 ml) and with decadron (4 mg) Ultrasound used to: recognize landmarks and visualize and ID femerol nerve Nerve Stimulator Used?: No Interscalene/Femoral BLK: 4 stimuplex 21 g needle used for position and inplane approach, visualize local anesthetic spread and no vascular puncture identified Injection: neg aspiration of heme Patient Tolerated Procedure: well Complications: none
[2024-04-24 13:50] LABS: Anion Gap 11.6 (5-19); Blood Urea Nitrogen 21 mg/dL (8-23); Calcium 8.7 mg/dL (8.5-10.5); Carbon Dioxide 30 mmol/L (22-29); Chloride 101 mmol/L (98-107); Creatinine Clr Calc Pharmacy 63.3028; Glucose 111 mg/dL (65-115); Osmolality Calculated 290 mOsm/kg (285-295); Potassium 4.6 mmol/L (3.5-5.1); Sodium 138 mmol/L (136-145)
[2024-04-24] MEDS: ceFAZolin 2,000 MG in sodium chloride 0.9% (plus) 50 ML 100 MG IV ×2 (14:08→21:26)
[2024-04-24] MEDS: tranexamic acid 1,000 mg/10mL SDV 1000 MG IV (14:27)
[2024-04-24] MEDS: EPINEPHrine 1 mg/mL INJ XX (14:50)
[2024-04-24] MEDS: ROPivacaine 0.2% Premix 100 mL 200 MG INTRA-ARTI (14:50)
[2024-04-24] MEDS: ketorolac 30 mg/mL INJ XX (14:50)
[2024-04-24] MEDS: tranexamic acid 1,000 mg/10mL SDV 1000 MG XX (14:50)
[2024-04-24] MEDS: vancomycin 1,000 MG SDV 2000 MG XX (14:53)
--- NOTE | 2024-04-24 17:20 | W.PM.BPON ---
Date of Procedure: [April 24, 2024] Surgeon: [Dr. Santos DO] [employer] Cleaning Machine Tender(s): [Ashkan Santos PA-C] Procedure(s) performed: [Right knee total arthroscopy with Abdullahi robotic assist] Findings of the procedure(s): [Severe right knee degenerative joint disease with multiple osteophytes all throughout femur and tibia. Procedure went well and as planned.] Estimated blood loss: [75 mL] Specimen(s) removed: [N/A] Post-operative diagnosis: [Right knee degenerative joint disease]
[2024-04-24] MEDS: HYDROmorphone 1 mg/mL INJ 1 mL 0.5 MG IVP ×2 (17:22→17:43)
--- NOTE | 2024-04-24 17:22 | PM.PACU ---
PACU note Narrative: Patient is a 78-year-old female just underwent a right knee total arthroplasty. Pt transferred to PACU in stable condition. Dressing is dry. pt is awake and alert. Compartments are soft and compressible. Pt can wiggle toes. Distal pulses are palpable toes are warm and well-perfused. Cap refill is normal and under 2 seconds. Sensation to foot is intact. Pain is controlled. Exam: awake Disposition: admitted
--- NOTE | 2024-04-24 17:29 | XRR_ITS ---
PROCEDURE INFORMATION: Exam: XR Right Knee Exam date and time: 04/24/2024 5:29 PM Age: 78 years old Clinical indication: Device placement; Joint replacement hardware; Prior surgery; Surgery date: Post-operative (0-2 days); Surgery type: Post op RT knee; Additional info: S/P R tka TECHNIQUE: Imaging protocol: Radiologic exam of the right knee. Views: 1 or 2 views. COMPARISON: CT knee RT [facility] [id number] 04/11/2024 11:27 AM FINDINGS: Bones/joints: Postoperative radiographs status post total right knee arthroplasty with components in expected position. Soft tissues: Postoperative soft tissue edema and air with skin claudia in place. XR/XR knee RT 1-2V [id number] IMPRESSION: 1. Postoperative radiographs status post total right knee arthroplasty with components in expected position.
--- NOTE | 2024-04-24 17:33 | PM.OP ---
Operative Report Date of procedure: April 24, 2024 Surgeon: Bart Santos DO Associate Professor Of Surgery: Ashkan Santos PA-C: PA was necessary for assistance in this case with leg positioning retraction and protection of neurovascular structures as well as assistance in implantation wound closure and dressing application. Procedure: Preoperative diagnosis: Right knee degenerative joint disease Post-op diagnosis: Same Procedure done: Right total knee arthroplasty, cemented?robotic assisted Abdullahi (modifier 22 for case complexity) case was twice is hard and complex as well as took twice as long as standard total knee replacement given patient's severe knee contracture, deformity and arthritis Implants: Orville triathlon size 4 femur CR cemented?Right Orville triathlon size? 3 tibia universal baseplate cemented Hilger triathlon symmetric patella size 29 mm Hilger triathlon polyethylene 12mm Surgeon: Bart Santos DO Estimated blood?loss: 75 mL Tourniquet 116mins IV fluids: 1500 mL Urine output: 300 mL Complications: None Condition: stable Disposition: floor Brief History: Patient is a 78-year-old female with with chronic?Right knee degenerative joint disease.? Patient has been worked up in the outpatient setting in the orthopedic office at this point time through shared decision making given? [id number] arthritis as well as failed conservative treatment, and pt would?like to proceed with a?Right total knee arthroplasty with possible revision implants.? Through shared decision making elected to proceed with surgical intervention for?Right total knee arthroplasty.? We talked about continued conservative treatment and surgical intervention as far as the risk benefits complications alternatives surgical and nonsurgical treatment options.? At this point time understanding patient risks with surgery he agrees to proceed with surgical intervention.? Once again? risk with surgery include but are not?limited to make it better make it worse blood clot, heart attack, stroke, on the table, infection, injury to nerves or vessels, persistent pain, arthrofibrosis, implant failure.? Understanding these risks patient agrees to proceed with surgical intervention consent was obtained in the office.? All questions answered. Procedure: Patient was seen and evaluated in the preoperative holding area.? Consent was reviewed and signed with patient with plan for?Right total knee arthroplasty.? All questions answered.? Correct extremity marked.? Patient seen and evaluated by the anesthesia department and once cleared for surgery was taken back to the operative suite.? Patient was placed into a supine position on the OR table.? All bony prominences were well-padded.? Patient was appropriately secured to the bed.? Patient underwent anesthesia per the anesthesia department.? Sesay catheter was placed.? A nonsterile tourniquet was applied to the?Right thigh.? At this point in time a final timeout performed.? Patient received appropriate preoperative antibiotics and TXA. Next the?Right?lower extremity was then prepped and draped in standard orthopedic fashion. Esmarch tourniquet was used exsanguinate the?Right?lower extremity.? Tourniquet was insufflated to 250 mmHg. A standard anterior incision was made over midline of the knee.? Sharp scalpel excision through skin and subcutaneous tissue full-thickness skin flaps were made.? Fascia was elevated off of the extensor retinaculum was stable with medial parapatellar arthrotomy was then made.? The performed standard sequential releases..? Immediately on entry into the joint patient was found to have severe eburnated bone and tricompartmental arthritic changes noted.? With significant osteophyte formation.? Next the the patella was then stuffed and the knee was then flexed.?? Renetta was placed superiorly around the anterior aspect of the femur this was freed of synovium and I subsequently then placed by 2 femur pins to establish my femur arrays for the Abdullahi robot.? These were then placed bicortically and? femur array was then appropriately secured with appropriate visualization.? Next attention was turned towards the tibial rays.? These were then drilled sequentially bicortically in parallel fashion and intraincisional.? I then placed my guide as well as my tibial array on in place.? This was appropriately secured and had excellent visualization with the Abdullahi robot.? Next the tibial checkpoint as well as femur checkpoint were then placed.? At this point time I then subsequently established my head center as well as my medial?lateral malleoli as well as my checkpoints.? Next utilizing standard [employer] technology I then mapped out the appropriate points and confirmation points around the femur as well as the tibia in standard fashion.? Once this was then done I then removed all osteophytes in preparation for dynamic testing.? All osteophytes were removed as well as I removed the ACL and the PCL was excised due to its significant tearing and degeneration noted.? At this point time the knee was brought into full extension and we performed our standard evaluation of our gap balancing stressing his?ligaments and extension as well as flexion appropriate adjustments were made to have appropriate gap balancing in both flexion and extension.?Patient was found to have a severe deformity range of motion roughly 15 to 90 degrees and range of motion patient did appear to have a stable MCL on stress but did have roughly a 10-15 degree varus deformity. We were able to get these numbers within close range with plan for likely sequential we perform more releases along the medial side as we excise the loose fragment and osteophytes medially that is tenting the MCL as well as removal of posterior osteophytes. We planned this accordingly with our cuts and plan was for soft tissue releases to further balance the knee once all cuts have been removed. This plan for final cuts.? This plan for final counts.? We get a preoperative plan evaluating our implants which was a size 4 femur and a size 3 tibia.? Next we brought in the [employer] robot and sequentially made our femur cuts.? All excess bony cuts were then removed.? Finally we made our tibial cut.? Once this was done a standard PCL retractor was then placed into this position I excised the medial and?lateral meniscus.? The tibial cut was then subsequently removed all excess bony debris was removed.? I then utilized a?lamina precinct captain and remove the posterior osteophytes.? At this point time sized the tibia and confirmed this was a size 3.? I utilized our blunt probe to establish rotation of tibial implant.? Once this was done I then placed my tibia size 3 trial in appropriate position and then subsequently placed tibial pins to hold this into placed and trialed up to a size 12 mm poly as well as a size 4 femur which was appropriately impacted in place knee was then subsequently brought into extension. Trials were then assessed,? this was stable with varus valgus stress in extension as well as had symmetrical translation when brought into flexion demonstrating symmetrical gaps. I had excellent balance gaps in flexion and extension with varus and valgus stresses.? It was evident with a 12 poly at this patient had a stable varus valgus stress with a competent MCL. No need for revision implants at this time. At this point I was satisfied with these implants these were then verified and opened on the back table size 3 tibia, size 4 femur,? size 12 mm polythickness.?we did confirm appropriate gap balancing and stresses as well as alignment utilizing? Abdullahi and were satisfied with this plan.? ?At this point time with my trials in place I then towel clip the patella everted this made appropriate measurements subsequently utilizing freehand technique performed by patellar resurfacing this was confirmed to be appropriate resection and subsequently sized to be a 29 mm symmetric.? My drill peg guides were then clamped and appropriate position and appropriate position in the patella for appropriate tracking and parallel with the joint.? Pegs were drilled trial implant was placed and the knee was then subsequently ranged and found to have excellent patellar tracking.? Femur pegs were then drilled.? All checkpoints as well as guidepins and arrays were removed and appropriate counts made.? Satisfied with our tibial placement rotation I then utilized the keel punch and prepped the tibia.? At this point time all of our trial implants were removed.? The wound bed? was thoroughly irrigated and dried and prepped for cementation.? Cement was mixed on the back table.? Once cement was ready this was then covered onto the tibia and the tibial baseplate was then impacted and all excess cement was removed.? Next the polyethylene was then impacted into place on the tibial baseplate.? Next cement was placed onto the femur as well as under the femur implants and impacted in to place and all excess cement was extruded and removed.? Knee was taken into full extension? to clear all excess cement was removed.? Warm saline was placed over the joint.? I then towel clip patella and dried for cementation. cemented the patella into place.? This was all clamped and the cement was allowed to cure.? Thorough irrigation performed with pulse?lavage.? I then placed my periarticular injection while the cement was curing.? Once cured the knee was taken through range of motion and had excellent stability and gaps were balanced in flexion and extension.? Tourniquet was then deflated. hemostasis satisfactory with electrocautery.? Antibiotic Vanco powder was placed in the wound bed for antibiotic infection prophylaxis. Next I then subsequently closed the capsule with Ethibond suture as well as a running strata fix suture.? Knee was then taken through range of motion 30 times.? Next the skin was then closed in?layered fashion of running stratifix sutures of deep and subcutenous tissue and skin.? ?closed in flexion and claudia for skin was then placed over the incision this allowed to cure.? Incision was covered with radha, with ABDs soft roll and Nilo wrap.? Patient was then awakened from anesthesia and taken to PACU in stable condition. Disposition: Patient taken to PACU in stable condition will be admitted to the floor for pain control PT/OT weight-bear as tolerated?Right?lower extremity dressing changes as needed, DVT prophylaxis. Pain control. Patient will receive appropriate postoperative antibiotics. patient will be seen today by the internal medicine team for medical management.? Patient will follow up with the office in 2 weeks.? Patient understands agrees with current plan.? All questions answered.
[2024-04-24] MEDS: labetalol 5 mg/mL SDV 20mL 100 MG (17:57)
--- NOTE | 2024-04-24 18:15 | ANE.PACU2 ---
Inpatient post-anesthesia follow up: Airway intact: Yes Vital signs: Temperature 98 F Pulse Rate 88 Respiratory Rate 15 Blood Pressure 149/86 Pulse Oximetry 95 Oxygen Delivery Me thod Room Air Oxygen Flow Rate 1 Fraction of Inspir ed Oxygen Hydration adequate: Yes Nausea and vomiting: No Pain level: 1 Mental status: Baseline
--- NOTE | 2024-04-24 18:30 | PC.NURSE ---
1820 - Met in OB 11 with Laure Preston RN at side - verified right knee dressing with patient - 023L NC 92% - Temp 99.4 - pulse 81 - BP 164/81 - pt accepted onto floor per nurse
--- NOTE | 2024-04-24 19:36 | P.CONIM_ITS ---
Providers/Reason For Consult 2 Consulting Physician/Specialty*: Hospitalist Reason for Consult*: Opioid management. Postop Attending Physician: Bart Santos DO Primary Care Provider: Dwayne Echevarria DO History of Present Illness History of Present Illness Kierra Dillon is a 78 year old female status post right total knee arthroplasty, follows up with Dr. Corrales for her pain management on high-dose opioids, history of profound familial and diabetic peripheral neuropathy, takes high-dose gabapentin, degenerative joint disease, shoulder arthropathy, carpal tunnel, status post right knee total arthroplasty today orthopedic consulted hospital service for management of her opioids and hypertension. Patient is stating that she was on Lasix for lower extremity swelling she is also taking amlodipine 5 mg daily, she is currently getting IV fluids I have not given an IV Lasix at this point She is satisfied with her home regimen which was resumed overnight Review of Systems 2 Eyes: Denies: change in vision ENMT: Denies: throat pain Card: Denies: chest pain Resp: Denies: dyspnea Musc: Reports: back pain, extremity pain, joint pain, limited range of motion and muscle weakness Psych: Reports: anxiety Medications/Allergies Home Medications Medication Instructions Recorded Confirmed Last Taken Type esomeprazole magnesium 40 mg 40 mg PO QDAY 07/10/19 04/21/24 04/24/24 History capsule,delayed release (Nexium) fluticasone 250 mcg-salmeterol 50 1 inh inhalation BID 07/10/19 04/21/24 11/30/21 History mcg/dose blistr powdr for inhalation (Advair Diskus) folic acid 1 mg tablet 1 mg PO QDAY 07/10/19 04/21/24 04/21/24 History lidocaine 5 % topical patch 1 patch topical QDAY 07/10/19 04/21/24 Unknown History melatonin 3 mg tablet 3 - 6 mg PO BEDTIME 07/10/19 04/21/24 04/20/24 History naproxen sodium 220 mg tablet 220 mg PO BID 07/10/19 04/24/24 04/18/24 History simethicone 1 tab PO DAILY 07/10/19 04/24/24 04/21/24 History cranberry fruit concentrate [Azo PO PRN UTI 10/17/19 04/11/24 Unknown History Cranberry] cyanocobalamin (vitamin B-12) 4 each PO .WEEKLY 10/17/19 04/21/24 Unknown History diclofenac sodium 1 % topical gel 4 gm topical QID osteoarthritis 03/19/20 04/21/24 Unknown Rx (Voltaren) #400 grams cholecalciferol (vitamin D3) 25 25 mcg PO DAILY 09/19/20 04/21/24 04/21/24 History mcg (1,000 unit) capsule Diabetic Shoes with Custom #1 ea 03/20/21 04/04/24 Unknown Rx Accommedative Inserts with Modifications of Left Sub Navicular for Offloading nystatin 100,000 unit/gram topical g topical 03/30/22 04/04/24 Unknown History cream albuterol sulfate 90 mcg/actuation 2 inh inhalation Q8H PRN Shortness 03/04/23 04/21/24 Unknown Rx aerosol inhaler (ProAir HFA) Of Breath #8.5 grams betamethasone dipropionate 0.05 % 1 applic topical BID PRN skin 11/10/23 04/21/24 Unknown Rx topical cream irritation #45 grams fluconazole 100 mg tablet 100 mg PO .weekly PRN fungal 11/10/23 04/21/24 Unknown Rx infection #52 tabs prednisone 10 mg tablet 10 mg PO DAILY inflammation #90 11/10/23 04/21/24 04/21/24 Rx tabs levothyroxine 25 mcg tablet 25 mcg PO DAILY thyroid #90 tabs 12/17/23 04/21/24 04/23/24 Rx alprazolam 0.25 mg tablet 0.25 mg PO BID PRN Anxiety #180 12/22/23 04/21/24 Unknown Rx tabs mupirocin 2 % topical ointment 1 applic topical BID skin 12/30/23 04/21/24 Unknown Rx infection #22 grams zolpidem 10 mg tablet 10 mg PO .qhs #90 tabs 03/20/24 04/21/24 04/22/24 Rx furosemide 20 mg tablet 20 mg PO DAILY edema #30 tabs 03/30/24 04/21/24 04/21/24 Rx hydrocodone 10 mg-acetaminophen 1 tab PO BID PRN pain 30 days #60 04/23/24 04/24/24 04/23/24 Rx 325 mg tablet tabs morphine 60 mg tablet,extended 60 mg PO Q8H pain 30 days #90 tabs 11/09/1104/24/24 04/24/24 Rx release amlodipine 5 mg tablet 5 mg PO DAILY 04/24/24 04/24/24 04/23/24 History bupropion HCl 150 mg 24 hr tablet, 150 mg PO DAILY 04/24/24 04/24/24 04/23/24 History extended release gabapentin 300 mg capsule 900 mg PO TID 04/24/24 04/24/24 04/23/24 History losartan 100 mg tablet 100 mg PO DAILY 04/24/24 04/24/24 04/23/24 History venlafaxine 75 mg capsule,extended 75 mg PO DAILY 04/24/24 04/24/24 04/21/24 History release 24 hr Allergies Allergy/AdvReac Type Severity Reaction Status Date / Time adhesive tape AdvReac VARIES, Verified 04/21/24 09:34 PAPER TAPE, SOME BANDAID BRANDS tolmetin [From Tolectin] AdvReac LOW BP, Verified 04/21/24 09:34 PASSED OUT Current Medications Generic Name Dose Route Start Last Admin Trade Name Trino PRN Reason Stop Dose Admin Docusate Sodium 100 mg 04/24/24 18:29 04/24/24 19:35 Docusate Sodium 100 Mg Capsule PO Not Given BID ALF Polysaccharide Iron Complex 150 mg 04/24/24 18:29 04/24/24 19:35 Iron Polysaccharide Complex 150 Mg Capsule PO Not Given BIDWM ALF Senna/Docusate Sodium 2 tab 04/24/24 18:29 04/24/24 19:35 Sennosides-Docusate Tablet PO Not Given BID ALF PFSH Acute 2 PFSH: Medical History Psoriasis Chronic neck and back pain Chronic pain of right knee Diabetes Encounter for long-term opiate analgesic use Cervical spine pain Long-term use of high-risk medication DDD (degenerative disc disease), lumbar Spinal stenosis and radicular pain Obesity Painful diabetic neuropathy Chronic osteoarthritis Acquired scoliosis Surgical History S/P hysterectomy S/P cholecystectomy History of placement of ear tubes 9 years ago -left side Family History Family/Other CAD (coronary artery disease) Hypertension Mother Hyperlipidemia Hypertension Grandmother Cancer Grandfather CAD (coronary artery disease) Denies family history of Diabetes Lupus Anesthesia complication Bleeding disorder Stroke Social History Smoking and tobacco/nicotine status: never used tobacco/nicotine Second hand smoke exposure: No Alcohol intake: never Substance/Drug Use: never Vitals/I&O/Wt Last Vital Signs Temp 99.7 F H 04/24/24 18:29 Pulse 80 04/24/24 18:29 Resp 18 04/24/24 18:29 BP 164/81 04/24/24 18:29 Pulse Ox 95 04/24/24 18:29 O2 Del Method Nasal Cannula 04/24/24 18:30 O2 Flow Rate 3 04/24/24 18:29 04/24/24 04/24/24 04/24/24 06:59 14:59 22:59 Intake Total 150 / 150 1550 / 1700 Output Total 375 / 375 Balance 150 / 150 1175 / 1325 Weight last 48 hrs Weight 91.626 kg Weight 91.626 kg Physical Exam 2 Narrative: pleasant and cooperative female Currently sitting in her bed Blood pressure stable Getting Tranxene Fahad acid no active chest pain or shortness of breath currently doing well on room air Complaining of right knee pain No sign of neurovascular compromise of right leg No audible stridor or wheezing S1, S2 Urinary Catheter Management: Sesay: Cath Placed During This Visit: yes Reason for Continuing Indwelling Catheter: Perioperative Use in Selected Surgeries Urinary Catheter Date of Insertion: 04/24/24 Urinary Catheter Time of Insertion: 12:30 Data 04/24/24 13:30 04/24/24 13:30 A&P Assessment and plan (1) Long-term use of high-risk medication: (2) Depression: (3) Diabetes: (4) Cervical spine pain: (5) Chronic neck and back pain: (6) Chronic pain of right knee: (7) PTTD (posterior tibial tendon dysfunction): (8) DDD (degenerative disc disease), lumbar: (9) Nerve pain: (10) History of arthroplasty of right knee: Plan Postop day 0 Right knee arthroplasty Patient is chronic opiate dependent, no active signs of withdrawal, gets a bowel movement once every [address] Torres is managing her pain medications now I will continue her morphine dose along with hydrocodone and discontinue Dilaudid Continue bowel regimen with senna S Currently patient is hemodynamically stable On DVT prophylaxis Rhona PT to see her in the morning Full code Regular diet Consult Attestations 2 Medical Necessity Statement: As per orthopedics Diagnoses Long-term use of high-risk medication Z79.899 Depression F32.A Diabetes E11.9 Cervical spine pain M54.2 Chronic neck and back pain M54.2; M54.9; G89.29 Chronic pain of right knee M25.561; G89.29 PTTD (posterior tibial tendon dysfunction) M76.829 DDD (degenerative disc disease), lumbar M51.36 Nerve pain M79.2 History of arthroplasty of right knee Z96.651
[2024-04-24] MEDS: lactated ringers 1,000 ML 100 ML IV (19:47)
[2024-04-24] MEDS: tranexamic acid 1,000 MG/100 ML PREMIX 600 MG IV (19:47)
[2024-04-24] MEDS: mupirocin oint 22 gm 1 APPLIC NASAL (19:50)
[2024-04-24] MEDS: calcium carb-vit d 600mg/400unit 1 Tablet 1 EACH PO (19:54)
[2024-04-24] MEDS: gabapentin 300 mg Capsule 900 MG PO (20:38)
[2024-04-24] MEDS: morphine ER (12 HR) 30 mg tablet 60 MG PO (20:38)
[2024-04-24] MEDS: chlorhexidine gluconate 0.12% Btl 473 mL 30 ML MUCOUS MEM (21:30)
[2024-04-25] MEDS: morphine ER (12 HR) 30 mg tablet 60 MG PO ×3 (03:56→20:45)
[2024-04-25 04:31] VITALS: BP 121/73; PULSE 82; RESP 18; TEMP 36.8; O2SAT 95
[2024-04-25] MEDS: ceFAZolin 2,000 MG in sodium chloride 0.9% (plus) 50 ML 100 MG IV ×2 (05:46→13:50)
[2024-04-25 05:48] LABS: Basophils % 0.2 %; Hematocrit 38.3 % (36-47); Lymphocytes # 1.1 10^3/uL (0.8-4.8); Lymphocytes % 7.8 %; Mean Corpuscular HGB Conc 30.5 g/dL (30-55); Mean Corpuscular Hemoglobin 27.5 pg (27-33); Mean Corpuscular Volume 90.1 fl (85-98); Mean Platelet Volume 11.5 fL (7.4-10.4); Monocytes # 0.7 10^3/uL (0.2-0.9); Monocytes % 4.5 %; Neutrophils # 12.51 10^3/uL (1.8-7.7); Neutrophils % 87.1 %; Nucleated Red Blood Cells % 0 %; Platelet Count 183 10^3/cmm (157-399); Red Blood Count 4.25 10^6/uL (3.85-5.65); White Blood Count 14.37 10^3/uL (3.29-11.43)
[2024-04-25] MEDS: HYDROcodone-acetaminophen 10-325 mg Tablet 1 TAB PO ×2 (05:55→17:44)
[2024-04-25 06:52] LABS: Anion Gap 12.5 (5-19); Blood Urea Nitrogen 18 mg/dL (8-23); Carbon Dioxide 27 mmol/L (22-29); Chloride 105 mmol/L (98-107); Creatinine Clr Calc Pharmacy 63.3028; Glucose 132 mg/dL (65-115); Osmolality Calculated 294 mOsm/kg (285-295); Potassium 4.5 mmol/L (3.5-5.1); Sodium 140 mmol/L (136-145)
[2024-04-25] MEDS: docusate sodium 100 mg Capsule PO ×2 (08:02→17:43)
[2024-04-25] MEDS: sennosides-docusate Tablet 2 TAB PO (08:02)
[2024-04-25] MEDS: gabapentin 300 mg Capsule 900 MG PO ×3 (08:02→20:45)
[2024-04-25] MEDS: amlodipine 5 mg Tablet PO (08:03)
[2024-04-25] MEDS: apixaban 5 mg Tablet 2.5 MG PO ×2 (08:03→17:44)
[2024-04-25] MEDS: levothyroxine 25 mcg Tablet PO (08:04)
[2024-04-25] MEDS: iron polysaccharide complex 150 mg Capsule PO ×2 (08:04→17:43)
[2024-04-25] MEDS: predniSONE 10 mg Tablet PO (08:04)
[2024-04-25 08:07] VITALS: BP 149/86; PULSE 88; RESP 15; TEMP 36.6; O2SAT 95
[2024-04-25] MEDS: multivitamin therapeutic Tablet 1 TAB PO (10:43)
[2024-04-25] MEDS: calcium carb-vit d 600mg/400unit 1 Tablet 1 EACH PO ×2 (10:43→17:43)
[2024-04-25] MEDS: chlorhexidine gluconate 0.12% Btl 473 mL 30 ML MUCOUS MEM ×4 (10:44→20:48)
[2024-04-25 11:13] VITALS: RESP 16; O2SAT 95
[2024-04-25] MEDS: mupirocin oint 22 gm 1 APPLIC NASAL ×2 (11:13→17:43)
--- NOTE | 2024-04-25 13:28 | P.PN_ITS ---
Subjective 2 Subjective: Patient was seen and examined this afternoon she is making progress with therapy. Still needing stronger pain medication due to her baseline medication that she takes. Would benefit from an additional night stay for pain control as well as therapy possibly looking at rehab facility upon discharge Vitals/I&O/Wt Last Vital Signs Temp 98 F 04/25/24 08:07 Pulse 88 04/25/24 08:07 Resp 16 04/25/24 11:13 BP 149/86 04/25/24 08:07 Pulse Ox 95 04/25/24 11:13 O2 Del Method Room Air 04/25/24 08:07 O2 Flow Rate 1 04/25/24 04:31 04/24/24 04/25/24 04/25/24 22:59 06:59 14:59 Intake Total 1700 / 1850 1050 / 2900 Output Total 650 / 650 235 / 885 550 / 550 Balance 1050 / 1200 815 / 2015 -550 / -550 Weight last 48 hrs Weight 202 lb Weight 202 lb Physical Exam 2 Narrative: Examination of the right knee dressings on in place with clean dry and intact radha dressing is good seal, patient is able to wiggle toes plantarflex and dorsiflex ankle sensations intact light touch distally. Distal pulses are palpable calf soft nontender. Right lower extremity warm well-perfused. Urinary Catheter Management: Sesay: Cath Placed During This Visit: yes, but has since been removed by the nurse Reason for Continuing Indwelling Catheter: Decision to DC Catheter Urinary Catheter Date of Insertion: 04/24/24 Urinary Catheter Time of Insertion: 12:30 Date Urinary Catheter Removed: 04/25/24 Time Urinary Catheter Discontinued: 11:19 Data 04/26/24 04:55 04/26/24 04:55 Xray Ortho: Radiologist's impression: Ordering Provider/Ordering MD: Bart Santos Date of Service: 04/24/24 Procedure(s): XR knee RT 1-2V 91084 Accession Number(s): [id number] Report Number: [id number] PROCEDURE INFORMATION: Exam: XR Right Knee Exam date and time: 04/24/2024 5:29 PM Age: 78 years old Clinical indication: Device placement; Joint replacement hardware; Prior surgery; Surgery date: Post-operative (0-2 days); Surgery type: Post op RT knee; Additional info: S/P R tka TECHNIQUE: Imaging protocol: Radiologic exam of the right knee. Views: 1 or 2 views. COMPARISON: CT knee RT FERN [id number] 04/11/2024 11:27 AM FINDINGS: Bones/joints: Postoperative radiographs status post total right knee arthroplasty with components in expected position. Soft tissues: Postoperative soft tissue edema and air with skin claudia in place. XR/XR knee RT 1-2V [id number] IMPRESSION: 1. Postoperative radiographs status post total right knee arthroplasty with components in expected position. A&P Assessment and plan (1) History of arthroplasty of right knee: Plan POD #1 TKA Weight-bear as tolerated to operative lower extremity Ice as needed for pain and swelling pain control PT/OT Resume Diet Postop TXA and postoperative antibiotics given Dressing changes as needed AM labs reviewed Postoperative x-rays reviewed Internal medicine consulted for medical management appreciate their assistance DVT prophylaxis (Eliquis) Patient this point in time we will benefit from continued therapy as well as working on pain control. Did talk with patient and family and would possibly benefit from a stay with assisted facility or rehab facility upon discharge due to patient's family trying to get home prep and safe for her return. Will follow-up with patient tomorrow. Attestations 2 Medical Necessity Statement*: Ongoing care status post right total knee arthroplasty Coding Level of Care Code Acute Code for Chg Fwd Diagnoses History of arthroplasty of right knee Z96.651 Time Spent (min) 15
[2024-04-25] MEDS: ketorolac 30 mg/mL INJ 15 MG IVP (13:54)
--- NOTE | 2024-04-25 14:51 | P.PN_ITS ---
Subjective 2 Subjective: seen this am no acute events overnight pain well controlled Vitals/I&O/Wt Last Vital Signs Temp 98 F 04/25/24 08:07 Pulse 88 04/25/24 08:07 Resp 16 04/25/24 11:13 BP 149/86 04/25/24 08:07 Pulse Ox 95 04/25/24 11:13 O2 Del Method Room Air 04/25/24 08:07 O2 Flow Rate 1 04/25/24 04:31 04/24/24 04/25/24 04/25/24 22:59 06:59 14:59 Intake Total 1700 / 1850 1050 / 2900 Output Total 650 / 650 235 / 885 750 / 750 Balance 1050 / 1200 815 / 2015 -750 / -750 Weight last 48 hrs Weight 91.626 kg Weight 91.626 kg Physical Exam 2 Narrative: pleasant and cooperative female Currently sitting in her bed Blood pressure stable lungs clear to auscultation says is comfortable and not having pain at this time. No audible stridor or wheezing S1, S2 Urinary Catheter Management: Sesay: Cath Placed During This Visit: yes, but has since been removed by the nurse Reason for Continuing Indwelling Catheter: Decision to DC Catheter Urinary Catheter Date of Insertion: 04/24/24 Urinary Catheter Time of Insertion: 12:30 Date Urinary Catheter Removed: 04/25/24 Time Urinary Catheter Discontinued: 11:19 Data 04/25/24 05:40 04/25/24 06:24 A&P Assessment and plan (1) Long-term use of high-risk medication: (2) Depression: (3) Diabetes: (4) Cervical spine pain: (5) Chronic neck and back pain: (6) Chronic pain of right knee: (7) PTTD (posterior tibial tendon dysfunction): (8) DDD (degenerative disc disease), lumbar: (9) Nerve pain: (10) History of arthroplasty of right knee: Plan Postop day 1 Right knee arthroplasty Patient is chronic opiate dependent, no active signs of withdrawal, gets a bowel movement once every [address] Torres is managing her pain medications now I will continue her morphine dose along with hydrocodone and discontinue Dilaudid Continue bowel regimen with senna S Currently patient is hemodynamically stable On DVT prophylaxis Rhona PT saw patient, waiting on their recommendations pt would like to go to SNF. Full code Regular diet Attestations 2 Medical Necessity Statement*: defer to primary team Coding Level of Care Code Acute Code for Chg Fwd Diagnoses Long-term use of high-risk medication Z79.899 Depression F32.A Diabetes E11.9 Cervical spine pain M54.2 Chronic neck and back pain M54.2; M54.9; G89.29 Chronic pain of right knee M25.561; G89.29 PTTD (posterior tibial tendon dysfunction) M76.829 DDD (degenerative disc disease), lumbar M51.36 Nerve pain M79.2 History of arthroplasty of right knee Z96.65
[2024-04-25 15:15] VITALS: BP 159/82; PULSE 78; RESP 15; TEMP 36.6; O2SAT 98
[2024-04-25 17:32] VITALS: BP 115/84; PULSE 88; RESP 20; TEMP 37.4; O2SAT 91
[2024-04-25] MEDS: lactated ringers 1,000 ML 100 ML IV (17:45)
[2024-04-25 19:53] VITALS: BP 146/82; PULSE 90; RESP 18; TEMP 37.1; O2SAT 95
[2024-04-26] MEDS: morphine ER (12 HR) 30 mg tablet 60 MG PO ×2 (03:16→11:18)
[2024-04-26 03:49] VITALS: BP 184/84; PULSE 77; RESP 18; TEMP 36.8; O2SAT 97
--- NOTE | 2024-04-26 04:02 | PC.NURSE ---
patient iv infiltrated. cathter intact. dr Ortiz notified, he ordered to leave out iv at this time. patient is compliant with po liquids and meds. she has po pain meds and others. fluids not given at this time per dr ruiz
[2024-04-26 05:35] LABS: Basophils % 0.3 %; Eosinophils % 0.3 %; Lymphocytes # 1.5 10^3/uL (0.8-4.8); Lymphocytes % 17.4 %; Mean Corpuscular HGB Conc 30.5 g/dL (30-55); Mean Corpuscular Hemoglobin 27.4 pg (27-33); Mean Corpuscular Volume 89.6 fl (85-98); Mean Platelet Volume 11.8 fL (7.4-10.4); Monocytes # 0.8 10^3/uL (0.2-0.9); Monocytes % 9.3 %; Neutrophils # 6.21 10^3/uL (1.8-7.7); Neutrophils % 72.1 %; Nucleated Red Blood Cells % 0 %; Platelet Count 168 10^3/cmm (157-399); Red Blood Count 4.13 10^6/uL (3.85-5.65); Red Cell Distribution Width 15.1 % (12.1-15.1); White Blood Count 8.62 10^3/uL (3.29-11.43)
[2024-04-26 05:57] LABS: Blood Urea Nitrogen 14 mg/dL (8-23); Calcium 8.2 mg/dL (8.5-10.5); Carbon Dioxide 26 mmol/L (22-29); Chloride 104 mmol/L (98-107); Creatinine Clr Calc Pharmacy 64.8208; Glucose 116 mg/dL (65-115); Osmolality Calculated 285 mOsm/kg (285-295); Sodium 137 mmol/L (136-145)
[2024-04-26 06:04] LABS: Anion Gap 11.4 (5-19); Potassium 4.4 mmol/L (3.5-5.1)
[2024-04-26 07:28] VITALS: BP 163/77; PULSE 82; RESP 18; TEMP 37.3; O2SAT 93
[2024-04-26] MEDS: apixaban 5 mg Tablet 2.5 MG PO (07:59)
[2024-04-26] MEDS: calcium carb-vit d 600mg/400unit 1 Tablet 1 EACH PO (08:03)
[2024-04-26] MEDS: gabapentin 300 mg Capsule 900 MG PO ×2 (08:04→15:36)
[2024-04-26] MEDS: levothyroxine 25 mcg Tablet PO (08:04)
[2024-04-26] MEDS: sennosides-docusate Tablet 2 TAB PO (08:04)
[2024-04-26] MEDS: iron polysaccharide complex 150 mg Capsule PO (08:04)
[2024-04-26] MEDS: amlodipine 5 mg Tablet PO (08:04)
[2024-04-26] MEDS: predniSONE 10 mg Tablet PO (08:05)
[2024-04-26] MEDS: HYDROcodone-acetaminophen 10-325 mg Tablet 1 TAB PO (08:05)
[2024-04-26] MEDS: docusate sodium 100 mg Capsule PO (08:05)
[2024-04-26] MEDS: multivitamin therapeutic Tablet 1 TAB PO (08:05)
[2024-04-26] MEDS: chlorhexidine gluconate 0.12% Btl 473 mL 30 ML MUCOUS MEM (08:06)
[2024-04-26] MEDS: mupirocin oint 22 gm 1 APPLIC NASAL (08:07)
[2024-04-26 11:18] VITALS: RESP 15
[2024-04-26 11:28] VITALS: BP 115/70; PULSE 105; RESP 18; TEMP 37.1; O2SAT 92
--- NOTE | 2024-04-26 14:10 | P.DS_ITS ---
Discharge Providers Date of Admission: 04/24/24 16:45 Date of Discharge: April 26, 2024 Attending Provider at Admission: Bart Santos DO Attending Provider at Discharge: Bart Santos DO Consults: Dr. Novoa-hospitalist Primary Care Provider: Dwayne Echevarria DO Diagnoses at Discharge Discharge Diagnosis (1) Long-term use of high-risk medication: Status: Chronic (2) Depression: Status: Acute (3) Diabetes: Status: Acute (4) Cervical spine pain: Status: Chronic (5) Chronic neck and back pain: Status: Chronic (6) Chronic pain of right knee: Status: Chronic (7) PTTD (posterior tibial tendon dysfunction): Status: Resolved (8) DDD (degenerative disc disease), lumbar: Status: Chronic Permanent problem details: Spinal stenosis and radicular pain (9) Nerve pain: Status: Acute (10) History of arthroplasty of right knee: Status: Acute Reason for Visit Reason for Visit: M17.11 Brief History: Status post right total knee arthroplasty Hospital Course Hospital Course Patient presented to the preoperative holding area with plan for right total knee arthroplasty after patient has been worked up in the outpatient setting for failed conservative treatment of right knee degenerative joint disease. Once cleared by anesthesia for surgery patient subsequently was taken back to the operative suite underwent anesthesia per anesthesia department and then subsequently underwent a right total knee arthroplasty. Procedure was performed without any complications patient was taken to PACU in stable condition patient recovered well in PACU and then was admitted to the floor postoperatively internal medicine was consulted and on board for medical management and assistance with care. Patient received appropriate PT/OT, postoperative antibiotics, postoperative TXA, pain control, postoperative DVT prophylaxis. Elevation and ice. Patient encouraged for knee range of motion allowed we ightbearing as tolerated to the operative lower extremity. Dressing was changed as needed, labs were monitored daily. Patient recovered well postoperatively and worked well and progressed well with therapy. Patient required additional night stay for pain control as well as working with therapy as well as plan for rehab facility placement due to patient benefiting from more focused therapy as well as patient family working on getting home safe and ready for her return. It was determined on postoperative day 2 the patient was stable for discharge from an orthopedic standpoint and medicine. Patient was comfortable with discharge and plan was discharged home. Patient received appropriate discharge instructions as well as pain medication and DVT prophylaxis postoperatively. Given appropriate instructions for dressing management. Patient will follow-up with Dr. Santos/orthopedics in the office in 2 weeks. All questions answered. Understand if there is any issues questions or concerns and contact the office. Physical Exam Narrative: Examination of the right knee dressings on in place with clean dry and intact radha dressing is good seal, patient is able to wiggle toes plantarflex and dorsiflex ankle sensations intact light touch distally. Distal pulses are palpable calf soft nontender. Right lower extremity warm well-perfused. Urinary Catheter Management: Sesay: Cath Placed During This Visit: yes, but has since been removed by the nurse Reason for Continuing Indwelling Catheter: Decision to DC Catheter Urinary Catheter Date of Insertion: 04/24/24 Urinary Catheter Time of Insertion: 12:30 Date Urinary Catheter Removed: 04/25/24 Time Urinary Catheter Discontinued: 11:19 Discharge Data Studies Completed and Pending Completed Studies During Hospitalization Category Date Time Status XR knee RT 1-2V 54301 Routine Exams 04/24/24 17:29 Completed Pending at discharge Category Date Time Status Basic Metabolic Panel AM LABS Lab 04/27/24 04:00 Ordered COVID [SARS Covid-2 Antigen] Routine Lab 04/26/24 14:01 Ordered Complete Blood Count w/Auto AM LABS Lab 04/27/24 04:00 Ordered Radiology Impressions Knee X-Ray 04/24/24 17:29 IMPRESSION: 1. Postoperative radiographs status post total right knee arthroplasty with components in expected position. Laboratory Results WBC 8.62 10^3/uL (3.29-11.43) 04/26/24 04:55 RBC 4.13 10^6/uL (3.85-5.65) 04/26/24 04:55 Hgb 11.30 g/dL (11.27-16.99) 04/26/24 04:55 Hct 37.0 % (36-47) 04/26/24 04:55 MCV 89.6 fl (85-98) 04/26/24 04:55 MCH 27.4 pg (27-33) 04/26/24 04:55 MCHC 30.5 g/dL (30-55) 04/26/24 04:55 RDW 15.1 % (12.1-15.1) 04/26/24 04:55 Plt Count 168 10^3/cmm (157-399) 04/26/24 04:55 MPV 11.8 fL (7.4-10.4) H 04/26/24 04:55 Neut % (Auto) 72.1 % 04/26/24 04:55 Lymph % (Auto) 17.4 % 04/26/24 04:55 [place] % (Auto) 9.3 % 04/26/24 04:55 Eos % (Auto) 0.3 % 04/26/24 04:55 Baso % (Auto) 0.3 % 04/26/24 04:55 Neut # (Auto) 6.21 10^3/uL (1.8-7.7) 04/26/24 04:55 Lymph # (Auto) 1.5 10^3/uL (0.8-4.8) 04/26/24 04:55 [place] # (Auto) 0.8 10^3/uL (0.2-0.9) 04/26/24 04:55 Eos # (Auto) 0.0 10^3/uL (0.0-0.8) 04/26/24 04:55 Baso # (Auto) 0.0 10^3/uL (0.0-0.1) 04/26/24 04:55 Nucleated RBC % (auto) 0 % 04/26/24 04:55 Nucleated RBCs # 0.0 /100WBC 04/26/24 04:55 Sodium 137 mmol/L (136-145) 04/26/24 04:55 Potassium 4.4 mmol/L (3.5-5.1) 04/26/24 04:55 Chloride 104 mmol/L (98-107) 04/26/24 04:55 Carbon Dioxide 26 mmol/L (22-29) 04/26/24 04:55 Anion Gap 11.4 (5-19) 04/26/24 04:55 BUN 14 mg/dL (8-23) 04/26/24 04:55 Creatinine 0.6 mg/dL (0.5-0.9) 04/26/24 04:55 GFR Calculation Not Reportable 04/26/24 04:55 Glucose 116 mg/dL (65-115) H 04/26/24 04:55 Calculated Osmolality 285 mOsm/kg (285-295) 04/26/24 04:55 Calcium 8.2 mg/dL (8.5-10.5) L 04/26/24 04:55 Urine Color Yellow (Yellow) 04/24/24 12:30 Urine Appearance Cloudy (CLEAR) A 04/24/24 12:30 Urine pH 6.5 (5-7) 04/24/24 12:30 Ur Specific [place] 1.030 (1.005-1.030) 04/24/24 12:30 Urine Protein 1+ (Negative) A 04/24/24 12:30 Urine Glucose (UA) Negative (Normal) 04/24/24 12:30 Urine Ketones Negative (Negative) 04/24/24 12:30 Urine Blood Negative (Negative) 04/24/24 12:30 Urine Nitrate Negative (Negative) 04/24/24 12:30 Urine Bilirubin Negative (Negative) 04/24/24 12:30 Urine Urobilinogen 1.0 mg/dL (Negative) 04/24/24 12:30 Ur Leukocyte Esterase Trace (Negative) A 04/24/24 12:30 Urine RBC 0-2 /hpf (0-2) 04/24/24 12:30 Urine WBC 0-5 /hpf (0-5) 04/24/24 12:30 Ur Squamous Epith Cells 0-5 /hpf (0-5) 04/24/24 12:30 Amorphous Sediment Not Reportable 04/24/24 12:30 Urine Bacteria None seen /hpf (NONE) 04/24/24 12:30 Hyaline Casts 7.42 /lpf 04/24/24 12:30 Urine Mucus 1+ /hpf 04/24/24 12:30 Blood Type A Positive 04/24/24 13:30 Rho(D) Type Rh positive 04/24/24 13:30 Antibody Screen Negative 04/24/24 13:30 Vitals Last Vital Signs Temp 98.8 F 04/26/24 11:28 Pulse 105 H 04/26/24 11:28 Resp 18 04/26/24 11:28 BP 115/70 04/26/24 11:28 Pulse Ox 92 04/26/24 11:28 O2 Del Method Room Air 04/26/24 11:28 O2 Flow Rate 1 04/25/24 04:31 Discharge Plan Discharge Patient Disposition: Xfer SNF Condition: Stable Prescriptions: Continued folic acid 1 mg tablet 1 mg PO DAILY esomeprazole magnesium [Nexium] 40 mg capsule,delayed release(DR/EC) 40 mg PO DAILY melatonin 3 mg tablet 3 - 6 mg PO BEDTIME lidocaine 5 % adhesive patch,medicated 1 patch TOPICAL DAILY PRN (Reason: Pain) fluticasone propion-salmeterol [Advair Diskus] 250-50 mcg/dose blister with device 1 inh INHALATION BID PRN (Reason: Shortness Of Breath) cholecalciferol (vitamin D3) 25 mcg (1,000 unit) capsule 25 mcg PO DAILY (DME) Diabetic Shoes with Custom Accommedative Inserts with Modifications of Left Sub Navicular for Offloading See Rx Instructions .Route .MEDSUPPLY Qty: 1 0RF Rx Instructions: As directed By [facility] nystatin 100,000 unit/gram cream See Rx Instructions .ROUTE .COMPLEX Rx Instructions: Appy to affected areas topically as needed for yeast growth. prednisone 10 mg tablet 10 mg PO DAILY Qty: 90 1RF fluconazole 100 mg tablet 100 mg PO .weekly PRN (Reason: fungal infection) Qty: 52 0RF betamethasone dipropionate 0.05 % cream 1 applic topical BID PRN (Reason: skin irritation) Qty: 45 3RF levothyroxine 25 mcg tablet 25 mcg PO DAILY Qty: 90 3RF furosemide 20 mg tablet 20 mg PO DAILY Qty: 30 1RF morphine 60 mg tablet extended release 60 mg PO Q8H 30 Days Qty: 90 0RF venlafaxine 75 mg capsule,extended release 24hr 75 - 150 mg PO DAILY amlodipine 5 mg tablet 5 mg PO QAM gabapentin 300 mg capsule 900 mg PO TID losartan 100 mg tablet 100 mg PO QPM bupropion HCl 150 mg tablet extended release 24 hr 150 mg PO DAILY albuterol sulfate 90 mcg/actuation HFA aerosol inhaler 2 puff INHALATION Q8H PRN (Reason: Shortness Of Breath) diclofenac sodium 1 % Gel 4 g TOPICAL QID PRN (Reason: joint pain) Rx Instructions: apply to single knee, ankle, foot; for foot includes sole/toes/top of foot cranberry fruit 400 mg Tablet 400 mg PO DAILY PRN (Reason: uti) Rx Instructions: administer with a meal simethicone [Gas-X Extra Strength] 125 mg Capsule 125 mg PO DAILY mupirocin 2 % ointment 1 applic topical BID PRN (Reason: skin infection) zolpidem 10 mg tablet 10 mg PO BEDTIME Changed hydrocodone-acetaminophen 10-325 mg tablet 1 tab PO Q4-5H MDD 3 tablets PRN (Reason: pain) 7 Days Qty: 42 0RF Held naproxen sodium 220 mg tablet 220 mg PO BID PRN (Reason: Pain) Hold Instructions: Resume on 05/10/24. Discharge Orders: Discharge Order (Routine); Ordered 04/26/24 Ordered By: Bart Santos Referrals: [facility] [Outside] Bart Santos DO [Physician] - 05/09/24 10:30 am Discharge Diet: Advance as tolerated Discharge Activity: Limit activity as instructed and Use walker/crutches as instructed Patient Instructions: Cephalexin (By mouth), Ondansetron (By mouth), Apixaban (By mouth), Acute Wound Care (DC), Total Knee Replacement (GEN), Post Anesthesia Care Activity Restrictions/Additional Instructions: Orthopedic discharge instructions: Radha Dressing--Keep dressing on and dry. After 3 days you can remove some of the dressing and shower. disconnect battery pack when showering. Radha dressing will stay on until follow up appt in 2 weeks. The battery pack for the dressing will at 5-7 days. Battery pack can be removed and discarded once batteries . Patient may weight-bear as tolerate to the operative extremity Utilize walker as needed Encourage knee range of motion Ice and elevate as needed for pain and swelling Take pain medication as prescribed (increased [place] 10 mg to 1 tab every 4- 5h) Continue home pain medication Take antinausea medication as needed Pain medication can cause constipation. take [id number] stool softeners and or MiraLAX. Continue taking your previously prescribed Eliquis after discharge from hospital May supplement for pain with ibuprofen [id number] as needed No baths or soaks Follow-up in the orthopedic office in 2 weeks Contact the office for any questions or concerns Discharge Attestations Time Spent in Discharge Care*: less than 30 min Quality Metrics Clinical Quality Measures [ No reported AMI, CVA or VTE this stay] Coding Level of Care Code Acute Code for Chg Fwd Diagnoses Long-term use of high-risk medication Z79.899 Depression F32.A Diabetes E11.9 Cervical spine pain M54.2 Chronic neck and back pain M54.2; M54.9; G89.29 Chronic pain of right knee M25.561; G89.29 PTTD (posterior tibial tendon dysfunction) M76.829 DDD (degenerative disc disease), lumbar M51.36 Nerve pain M79.2 History of arthroplasty of right knee Z96.651
--- NOTE | 2024-04-26 14:35 | P.PN_ITS ---
Vitals/I&O/Wt Last Vital Signs Temp 98.8 F 04/26/24 11:28 Pulse 105 H 04/26/24 11:28 Resp 18 04/26/24 11:28 BP 115/70 04/26/24 11:28 Pulse Ox 92 04/26/24 11:28 O2 Del Method Room Air 04/26/24 11:28 O2 Flow Rate 1 04/25/24 04:31 04/25/24 04/26/24 04/26/24 22:59 06:59 14:59 Intake Total 450 / 450 200 / 650 240 / 240 Output Total 150 / 900 Balance 300 / -450 200 / -250 240 / 240 Weight last 48 hrs Weight 95.708 kg Weight 91.626 kg Physical Exam 2 Narrative: pleasant and cooperative female Currently sitting in her bed Blood pressure stable lungs clear to auscultation says is comfortable and not having pain at this time. No audible stridor or wheezing S1, S2 Urinary Catheter Management: Sesay: Cath Placed During This Visit: yes, but has since been removed by the nurse Reason for Continuing Indwelling Catheter: Decision to DC Catheter Urinary Catheter Date of Insertion: 04/24/24 Urinary Catheter Time of Insertion: 12:30 Date Urinary Catheter Removed: 04/25/24 Time Urinary Catheter Discontinued: 11:19 Data 04/26/24 04:55 04/26/24 04:55 A&P Assessment and plan (1) Long-term use of high-risk medication: (2) Depression: (3) Diabetes: (4) Cervical spine pain: (5) Chronic neck and back pain: (6) Chronic pain of right knee: (7) PTTD (posterior tibial tendon dysfunction): (8) DDD (degenerative disc disease), lumbar: (9) Nerve pain: (10) History of arthroplasty of right knee: Plan Postop day 2 Right knee arthroplasty Patient is chronic opiate dependent, no active signs of withdrawal, gets a bowel movement once every [address] Torres is managing her pain medications now I will continue her morphine dose along with hydrocodone and discontinue Dilaudid Continue bowel regimen with senna S Currently patient is hemodynamically stable On DVT prophylaxis Rhona PT saw patient, waiting on their recommendations pt would like to go to SNF. Full code Regular diet 04/26/2024 Patient will be discharged today. ? Awaiting insurance authorization. ? Pain is well-controlled at this time. Attestations 2 Medical Necessity Statement*: Defer to primary Coding Level of Care Code Acute Code for Chg Fwd Diagnoses Long-term use of high-risk medication Z79.899 Depression F32.A Diabetes E11.9 Cervical spine pain M54.2 Chronic neck and back pain M54.2; M54.9; G89.29 Chronic pain of right knee M25.561; G89.29 PTTD (posterior tibial tendon dysfunction) M76.829 DDD (degenerative disc disease), lumbar M51.36 Nerve pain M79.2 History of arthroplasty of right knee Z96.651
[2024-04-26 14:42] LABS: SARS Covid-2 Antigen negative (Negative)
[2024-04-26 15:13] VITALS: BP 109/70; PULSE 83; RESP 18; TEMP 37.3; O2SAT 95
[2024-04-26 15:53] VITALS: BP 109/70; PULSE 83; RESP 18; TEMP 36.7; O2SAT 95
[2024-04-27 11:55] LABS: Glucose Point of Care 97 mg/dL (70-110)
== END 2024-04-26 15:55 | disposition skilled nursing facility (03) ==
LOC: OBGYN 18:33 → MEDSURG 04-25 17:09
PROVIDERS: Internal Medicine; Physician Assistant; Admitting Provider Student in an Organized Health Care Education/Training Program; PCP Family Medicine; Visit Provider Student in an Organized Health Care Education/Training Program
PROC: 8E0Y0CZ Robotic Assisted Procedure of Lower Extremity, Open Approach (ICD-10-PCS; CPT 27447; principal; 2024-04-24 13:20)
DX: M17.11 Unilateral primary osteoarthritis, right knee (principal); M24.561 Contracture, right knee; J44.9 Chronic obstructive pulmonary disease, unspecified; I10 Essential (primary) hypertension; K21.9 Gastro-esophageal reflux disease without esophagitis; E11.9 Type 2 diabetes mellitus without complications; Z82.49 Family history of ischemic heart disease and other diseases of the circulatory system; Z79.899 Other long term (current) drug therapy; F32.A Depression, unspecified; G89.29 Other chronic pain; M54.2 Cervicalgia; M54.9 Dorsalgia, unspecified; M25.561 Pain in right knee; M79.2 Neuralgia and neuritis, unspecified
CPT/HCPCS: 27447; 20985; 36415; 36416; 51702; 73560; 80048; 81001; 82962; 85025; 86850; 86900; 87426; 97110; 97116; 97161; 97165; 97530; 97535; C1776; G0378; J0131; J0171; J0690; J1100; J1171; J1885; J2405; J2704; J2795; J3010; J3370; J3490; J7030; J7120; J7512

== ENCOUNTER → 2024-05-09 10:41 | Outpatient (BNVA) | payer MEDICARE, SELFPAY | PROVIDERS: PCP Family Medicine; Visit Provider Student in an Organized Health Care Education/Training Program | DX: Z96.651 Presence of right artificial knee joint | CPT/HCPCS: 73560; 73565; 99024 ==

== ENCOUNTER → 2024-09-28 14:03 | Outpatient (BNVA) | payer MEDICARE, SELFPAY | PROVIDERS: PCP Family Medicine; Visit Provider Family Medicine | DX: Z79.899 Other long term (current) drug therapy (principal); E11.9 Type 2 diabetes mellitus without complications; E03.9 Hypothyroidism, unspecified; M54.2 Cervicalgia; M54.9 Dorsalgia, unspecified; G89.29 Other chronic pain | CPT/HCPCS: 80053; 82306; 82607; 83036; 84443; 85025 ==

== ENCOUNTER 2024-12-19 05:00 | Outpatient (RCR) | payer MEDICARE, SELFPAY | END 2025-01-18 23:59 | disposition home or self-care (01) | LOC: SPT 05:00 | PROVIDERS: PCP Family Medicine; Visit Provider Family Medicine | DX: M25.561 Pain in right knee (principal); G89.29 Other chronic pain | CPT/HCPCS: 97161 ==

== ENCOUNTER 2025-01-19 05:00 | Outpatient (RCR) | payer MEDICARE, SELFPAY | END 2025-02-18 23:59 | disposition home or self-care (01) | LOC: SPT 05:00 | PROVIDERS: PCP Family Medicine; Visit Provider Family Medicine | DX: M25.561 Pain in right knee (principal); G89.29 Other chronic pain | CPT/HCPCS: 97110 ==

== ENCOUNTER 2025-02-19 05:00 | Outpatient (RCR) | payer MEDICARE, SELFPAY | END 2025-03-20 23:59 | disposition home or self-care (01) | LOC: SPT 05:00 | PROVIDERS: PCP Family Medicine; Visit Provider Family Medicine | DX: M25.561 Pain in right knee (principal); G89.29 Other chronic pain | CPT/HCPCS: 97110 ==

== ENCOUNTER → 2025-02-28 10:07 | Outpatient (BNVA) | payer MEDICARE, SELFPAY | PROVIDERS: PCP Family Medicine; Visit Provider Podiatrist Foot & Ankle Surgery | DX: E11.42 Type 2 diabetes mellitus with diabetic polyneuropathy (principal); L60.3 Nail dystrophy; L84 Corns and callosities; M76.829 Posterior tibial tendinitis, unspecified leg; M14.672 Charcot's joint, left ankle and foot; Q66.82 Congenital vertical talus deformity, left foot | CPT/HCPCS: 11056; 11721; 99213 ==

== ENCOUNTER → 2025-03-13 08:55 | Outpatient (BNVA) | payer MEDICARE, SELFPAY | PROVIDERS: PCP Family Medicine; Visit Provider Student in an Organized Health Care Education/Training Program | DX: Z96.651 Presence of right artificial knee joint (principal); M17.12 Unilateral primary osteoarthritis, left knee | CPT/HCPCS: 20610; 73560; 73565; 99214; J3301; J9999 ==

== ENCOUNTER 2025-03-30 15:36 | Outpatient (RCR) | payer MEDICARE, SELFPAY | END 2025-04-20 23:59 | disposition home or self-care (01) | LOC: SPT 15:36 | PROVIDERS: PCP Family Medicine; Visit Provider Family Medicine | DX: M25.561 Pain in right knee (principal); G89.29 Other chronic pain | CPT/HCPCS: 97110; 97530 ==

== ENCOUNTER → 2025-05-08 12:08 | Outpatient (BNVA) | payer MEDICARE, SELFPAY | PROVIDERS: PCP Family Medicine; Visit Provider Family Medicine | DX: E03.9 Hypothyroidism, unspecified (principal); E11.9 Type 2 diabetes mellitus without complications; F32.A Depression, unspecified; M25.561 Pain in right knee; G89.29 Other chronic pain; M54.2 Cervicalgia; M54.9 Dorsalgia, unspecified; R53.81 Other malaise; E55.9 Vitamin D deficiency, unspecified | CPT/HCPCS: 80053; 80061; 82306; 83036; 84443; 85025 ==

== ENCOUNTER → 2025-06-19 11:10 | Outpatient (BNVA) | payer MEDICARE, SELFPAY | PROVIDERS: PCP Family Medicine; Visit Provider Physician Assistant | DX: M17.12 Unilateral primary osteoarthritis, left knee (principal); Z71.89 Other specified counseling | CPT/HCPCS: 20610; 99213; J3301; J9999 ==